=== PATIENT | female | born 1980 | race African-American/Black ===

== ENCOUNTER 2018-05-07 16:02 | Inpatient (IN) | payer BC, OTHER ==
--- NOTE | 2018-05-07 16:19 | PDOC ---
Rapid Medical Evaluation Time Seen by Provider: 05/07/18 16:15 Medical Evaluation: Allergies Allergy/AdvReac Type Severity Reaction Status Date / Time No Known Allergies Allergy Verified 05/07/18 08:46 05/07/18 16:15 I performed a brief in-person evaluation of this patient. Chief complaint is: Sent by PCP for blood transfusion. Had pre-op labs for ANGELLA with Dr. Koo scheduled for tomorrow. Pertinent physical exam findings include: Alert, no distress. No dyspnea. No pallor. I have ordered the following: Labs, EKG. Patient will proceed to the ED for further evaluation. Discharge Disposition - Diagnosis Anemia Qualifiers: Anemia type: unspecified type Qualified Code(s): D64.9 - Anemia, unspecified - Referrals - Patient Instructions - Post Discharge Activity
[2018-05-07 16:32] VITALS: BMI 26.4
--- NOTE | 2018-05-07 16:45 | PDOC ---
History of Present Illness - General Chief Complaint: Blood Transfusion Stated Complaint: PCP ADMIT/BLOOD TRANSFUSION Time Seen by Provider: 05/07/18 16:15 History Source: Patient - History of Present Illness Initial Comments: 05/07/18 16:49 The patient is a 38 year old female with a PMH of Anemia (2/2 fibroids) who presents to our ED for a low reported Hb level. Patient reports she is scheduled for ANGELLA tomorrow and she had pre-operative labs drawn in Dr. Don's office that showed a low Hb so she was instructed to report to the ED for a pre-operative transfusion. Patient notes she feels intermittently lightheaded upon exertion for the past 3 weeks but denies shortness of breath, palpitations. H/o anemia during her first at which time she required 3 weeks of every other day Fe transfusions in her third trimester. Did not receive any additional hematological work-up/evaluation at that time. ED staff reports that phone call received from Quiana in Dr. Don's office stating that pre-operative labs drawn yesterday reported with a Hb of 4 and patient was advised to come to the ED for transfusion and admission. NKDA Surgical: inguinal hernia repair Social: denies toxic habits PMD: None - will refer to IM resident clinic Past History - Past Medical History Allergies/Adverse Reactions: Allergies Allergy/AdvReac Type Severity Reaction Status Date / Time No Known Allergies Allergy Verified 05/07/18 08:46 Home Medications: Ambulatory Orders Ibuprofen [Motrin -] 400 mg PO PRN PRN 05/07/18 COPD: No - Surgical History Cholecystectomy: No - Immunization History Immunization Up to Date: Yes - Suicide/Smoking/Psychosocial Hx Smoking History: Never smoked Have you smoked in the past 12 months: No Information on smoking cessation initiated: No Hx Alcohol Use: No Drug/Substance Use Hx: No Review of Systems - Review of Systems Constitutional: No: Chills, Fever HEENTM: No: Recent change in vision Respiratory: No: Cough, Shortness of Breath Cardiac (ROS): Yes: Lightheadedness. No: Chest Pain, Palpitations, Syncope ABD/GI: No: Constipated, Diarrhea, Nausea, Vomiting *Physical Exam - Vital Signs Last Vital Signs Temp Pulse Resp BP Pulse Ox 99.3 F 83 18 115/74 100 05/07/18 16:16 05/07/18 16:16 05/07/18 16:16 05/07/18 16:16 05/07/18 16:16 - Physical Exam General Appearance: Yes: Nourished, Appropriately Dressed HEENT: positive: Normal Voice, Hearing Grossly Normal. negative: Pale Conjunctivae Neck: positive: Trachea midline, Supple Respiratory/Chest: positive: Lungs Clear, Normal Breath Sounds Cardiovascular: positive: S1, S2. negative: JVD, Murmur, Tachycardia Vascular Pulses: Dorsalis-Pedis (R): 2+, Doralis-Pedis (L): 2+ Gastrointestinal/Abdominal: positive: Normal Bowel Sounds, Soft. negative: Distended, Guarding, Rebound, Tenderness, Hernia Extremity: positive: Normal Capillary Refill, Normal Inspection Integumentary: positive: Normal Color, Dry, Warm Moderate Sedation - Procedure Monitoring Vital Signs: Procedure Monitoring Vital Signs Temperature 99.3 F 05/07/18 16:16 Pulse Rate 83 05/07/18 16:16 Respiratory Rate 18 05/07/18 16:16 Blood Pressure 115/74 05/07/18 16:16 O2 Sat by Pulse Oximetry (%) 100 05/07/18 16:16 ED Treatment Course - LABORATORY CBC & Chemistry Diagram: 05/07/18 16:24 05/07/18 16:24 Medical Decision Making - Medical Decision Making 05/07/18 16:55 38 year old female with confirmed Hb reading of 4 yesterday in her OB-Dough Braker (Dr. Don) office as a part of pre-op labs for scheduled ANGELLA tomorrow. Intermittently symptomatic with 3 week h/o lightheadedness. VS unremarkable. CBC, CMP, Type and Screen ordered in triage. Will also refer to IM resident clinic so patient can establish primary care. 05/07/18 17:03 Case d/w Dr. Don, states patient can be admitted under her name 05/07/18 17:05 Lab phone call recieved Hb 6.8 Two units PRBC ordered 05/07/18 17:38 Patient counseled on risks/benefits and consents to transfusion. Patient admitted to Dr. Don. 05/07/18 17:48 As patient is admitted, EMR does not allow for referral to be placed to IM resident clinic; patient given IM resident clinic pamphlet and counseled extensively on importance of establishing primary care. *DC/Admit/Observation/Transfer Diagnosis at time of Disposition: Anemia Qualifiers: Anemia type: unspecified type Qualified Code(s): D64.9 - Anemia, unspecified - Discharge Dispostion Condition at time of disposition: Stable - Referrals - Patient Instructions - Post Discharge Activity
[2018-05-07 16:51] LABS: BASO % 1.2 % (0-2.0); EOS % 2.3 % (0-4.5); HEMATOCRIT 23.7 % (32.4-45.2); LYMPH % 24.8 % (8-40); MCHC 28.5 g/dl (32.0-36.0); MEAN CELL VOLUME 57.2 fl (80-96); MEAN PLT VOLUME 8.7 fl (7.5-11.1); MONO % 8.7 % (3.8-10.2); PLATELET COUNT 186 K/MM3 (134-434); RBC 4.14 M/mm3 (3.60-5.2); RDW 20.5 % (11.6-15.6); WHITE BLOOD COUNT 6.7 K/mm3 (4.0-10.0)
[2018-05-07 17:00] LABS: HEMOGLOBIN 6.8 GM/dL (10.7-15.3); MCH 16.3 pg (25.7-33.7)
[2018-05-07 17:04] LABS: INR 1.13 (0.83-1.09); PROTHROMBIN TIME (PATIENT) 13.4 SEC (9.7-13.0)
[2018-05-07 18:00] LABS: ALBUMIN 3.8 g/dl (3.4-5.0); ALK PHOS 58 U/L (45-117); ANION GAP 8 MMOL/L (8-16); BILIRUBIN,TOTAL 0.3 mg/dL (0.2-1); BLOOD UREA NITROGEN 8 mg/dL (7-18); CALCIUM 8.4 mg/dL (8.5-10.1); CHLORIDE 109 mmol/L (98-107); CO2 24 mmol/L (21-32); CREATININE 0.5 mg/dL (0.55-1.3); GLUCOSE,RANDOM 96 mg/dL (74-106); SGOT/AST 9 U/L (15-37); SGPT/ALT 16 U/L (13-61); SODIUM 140 mmol/L (136-145); TOT PROT 7.1 g/dl (6.4-8.2)
--- NOTE | 2018-05-07 18:08 | PDOC ---
Attending Attestation - Resident Resident Name: Sayra Rosenbaum - ED Attending Attestation I have performed the following: I have examined & evaluated the patient, The case was reviewed & discussed with the resident, I agree w/resident's findings & plan, Exceptions are as noted - HPI HPI: 05/07/18 18:09 The patient is a 38 year old female, with a significant past medical history of Anemia, who presents to the emergency department sent from Dr. Koo office for evaluation of low hemoglobin (4) on pre-operative labs for ANGELLA scheduled tomorrow. The patient reports having anemia during her first at which time she required 3 weeks of every other day iron transfusions in her third trimester and did not receive any additional hematological evaluation at that time. The patient notes she feels intermittently lightheaded upon exertion but denies shortness of breath, palpitations. The patient denies chest pain, headache and dizziness. Denies fever, chills, nausea, vomit, diarrhea and constipation. Denies dysuria, frequency, urgency and hematuria. Allergies: NKA Surgical: inguinal hernia repair Social: denies toxic habits - Physicial Exam PE: 05/07/18 18:09 agree with resident exam - Medical Decision Making 05/07/18 18:09 38yo F hx fibroids, scheduled for ANGELLA tomorrow prsents to the ED for transfusion for anemia prior to surgery tomorrow. Pt accepted for admission to Dr. Koo.
[2018-05-08] MEDS ORDERED: LIDOCAINE HCL/PF 2% SDV 5ML VIAL ONE (09:49)
[2018-05-08] MEDS ORDERED: ceFAZolin SODIUM 1 GM VIAL ONE (09:49)
[2018-05-08] MEDS ORDERED: DEXAMETHASONE SOD PHOSPHATE 4 MG/1 ML VIAL ONE (09:49)
[2018-05-08] MEDS ORDERED: ROCURONIUM BROMIDE 50 MG/5 ML VIAL ONE (09:52)
[2018-05-08] MEDS ORDERED: PROPOFOL 20 ML ONE (09:52)
[2018-05-08 10:14] LABS: BASO % 0.8 % (0-2.0); EOS % 2.4 % (0-4.5); HEMATOCRIT 29.5 % (32.4-45.2); HEMOGLOBIN 9.2 GM/dL (10.7-15.3); LYMPH % 19.5 % (8-40); MCHC 31.2 g/dl (32.0-36.0); MEAN CELL VOLUME 61.1 fl (80-96); MEAN PLT VOLUME 8.7 fl (7.5-11.1); MONO % 7.8 % (3.8-10.2); NEUT % 69.5 % (42.8-82.8); PLATELET COUNT 190 K/MM3 (134-434); RBC 4.83 M/mm3 (3.60-5.2); RDW 24.6 % (11.6-15.6)
[2018-05-08] MEDS ORDERED: ROPIVACAINE HCL 0.5% 30ML VIAL ONE (10:25)
[2018-05-08] MEDS ORDERED: DEXAMETHASONE SOD PHOSPHATE/PF 10 MG/ML SDV ONE (10:25)
[2018-05-08] MEDS ORDERED: MIDAZOLAM HCL 2 MG/2 ML SINGLE DOSE VIAL ONE ×2 (10:26)
[2018-05-08 10:29] LABS: MCH 19.1 pg (25.7-33.7)
[2018-05-08] MEDS ORDERED: PHENAZOPYRIDINE HCL 100 MG TABLET (FP) ONE ×2 (10:49→10:51)
[2018-05-08] MEDS ORDERED: KETAMINE HCL 200 MG/20 ML VIAL ONE (10:50)
[2018-05-08] MEDS ORDERED: CEFAZOLIN 2 GM/D5W 2 GM/50 ML ML IVPB ONE ×2 (11:00→14:44)
[2018-05-08] MEDS ORDERED: PHENAZOPYRIDINE HCL 100 MG TABLET (FP) PO ONE ×2 (11:15→14:44)
[2018-05-08] MEDS ORDERED: ceFAZolin SODIUM 1 GM VIAL IVPB ONE (11:16)
[2018-05-08] MEDS ORDERED: ONDANSETRON 4 MG/2 ML VIAL IVPUSH PRN ×2 (11:39→14:44)
[2018-05-08] MEDS ORDERED: HYDROmorphone *PCA* 10MG/50ML DISP.SYRIN PCA SCH ×2 (11:45→14:44)
[2018-05-08] MEDS ORDERED: LACTATED RINGERS SOLUTION 1,000 ML IV SCH (11:45)
--- NOTE | 2018-05-08 12:22 | EKG ---
Test Reason : Blood Pressure : / mmHG Vent. Rate : 079 BPM Atrial Rate : 079 BPM P-R Int : 170 ms QRS Dur : 092 ms QT Int : 378 ms P-R-T Axes : 043 -17 036 degrees QTc Int : 433 ms NORMAL SINUS RHYTHM NORMAL ECG WHEN COMPARED WITH ECG OF 07-MAY-2018 16:27, NO SIGNIFICANT CHANGE WAS FOUND Confirmed by NIRMAL GRAY MD ([id number]) on 05/08/2018 12:22:03 PM Referred By: Confirmed By:NIRMAL GRAY MD
--- NOTE | 2018-05-08 12:23 | EKG ---
Test Reason : Blood Pressure : / mmHG Vent. Rate : 074 BPM Atrial Rate : 074 BPM P-R Int : 166 ms QRS Dur : 088 ms QT Int : 376 ms P-R-T Axes : 028 -07 033 degrees QTc Int : 417 ms NORMAL SINUS RHYTHM NORMAL ECG NO PREVIOUS ECGS AVAILABLE Confirmed by NIRMAL GRAY MD ([id number]) on 05/08/2018 12:23:24 PM Referred By: Confirmed By:NIRMAL GRAY MD
[2018-05-08] MEDS ORDERED: NEOSTIGMINE METHYLSULFATE 0.5 MG/ML - 10 ML MDV ONE (12:41)
[2018-05-08] MEDS ORDERED: GLYCOPYRROLATE 0.2 MG/1 ML VIAL ONE (12:41)
[2018-05-08] MEDS ORDERED: BENZOIN TINCTURE SWABSTICK TP ONE (12:47)
[2018-05-08] MEDS ORDERED: KETOROLAC TROMETHAMINE 30 MG/1 ML VIAL ONE (13:07)
--- NOTE | 2018-05-08 13:46 | OP ---
DATE OF OPERATION: 05/08/2018 PREOPERATIVE DIAGNOSIS: Leiomyomatous uterus, menorrhagia, anemia, and intramural myomas. SURGERY: Total abdominal hysterectomy and bilateral salpingectomy. SURGEON: Emma Koo MD VP: ELI Day ANESTHESIA: General. PROCEDURE: Patient was taken to the operating room, placed in supine position, prepped and draped in the usual sterile fashion. A time-out was called in accordance with hospital regulations. Hilton catheter was inserted into the bladder. Attention was then drawn to the umbilicus, where a Pfannenstiel skin incision was made with the scalpel. Cautery was then used to go through the layers of abdominal wall to the level of the fascia. Fascia was cut in the midline, and cautery was then used to open the fascia in smiling fashion. Evelin was then used to bluntly and sharply dissect the rectus muscle off the fascia. The muscle was split in the midline. Peritoneal cavity was then entered and carried up and downwards. Bladder retractor was then placed Vesicouterine reflection was then entered. Bladder was bluntly dissected out of the operative field. Utero-ovarian ligament was identified and clamped and cut with LigaSure bilaterally. Uterine arteries were identified and clamped and cut. Vesicouterine reflection was then entered again and carried downwards. Bladder was bluntly dissected out of the operative field. Cardinal ligaments were identified and clamped and cut using LigaSure down to the level of the cervix. Vagina was then entered, and cervix was then cut away from the vagina. Uterus was approximately 15 weeks in size and was submitted to Pathology. Attention was then drawn to the ovaries. The left ovary was noted to have a 5-cm ovarian cyst. Ovarian cystectomy was then performed and submitted to Pathology. All bleeding was hemostatic using figure-of-8 sutures as well as free ties and cautery. Ureters were identified and found to be in peristalsis. Interceed was placed on the cuff. Hemostasis was achieved. Right ovary was noted to be normal. The peritoneum was then closed using 0 Vicryl suture. Muscles were approximated in the midline using 0 Vicryl suture. Fascia was then closed using 0 Vicryl suture. Subcutaneous was then closed in 3 interrupted sutures using 2-0 Vicryl, and skin was then closed in subcuticular fashion using 3-0 Vicryl in subcuticular fashion. Wounds washed and dressed. Patient tolerated the procedure well. Estimated blood loss was 300 milk EMMA KOO M.D. [id number]
[2018-05-08] MEDS ORDERED: HYDROmorphone *PCA* 10MG/50ML DISP.SYRIN PCA ONE (13:59)
[2018-05-08] MEDS ORDERED: SIMETHICONE 80 MG TAB.CHEW (FP) PO PRN (14:08)
[2018-05-08] MEDS ORDERED: LACTATED RINGERS SOLUTION 1,000 ML/1,000 ML INFUS.BAG IV SCH ×2 (14:15→14:44)
--- NOTE | 2018-05-08 15:34 | OP ---
Operative Note - Note: Operative Date: 05/08/18 Pre-Operative Diagnosis: dysfunctional uterine bleeding, Leiomyoma of uterus Operation: Total abdominal hysterctomy, Right Salpingectomy, Left ovarian cystectomy Post-Operative Diagnosis: Same as Pre-op Surgeon: Radha Koo Care Navigator: Latasha Chaudhry Anesthesiologist/SURFACER OPERATOR: Chang Fish Anesthesia: General, Local (tap block) Specimens Removed: uterus,. right fallopian tube Estimated Blood Loss (mls): 300 Drains, Volume Out (mls): 400 Fluid Volume Replaced (mls): 1,700 Operative Report Dictated: Yes
--- NOTE | 2018-05-08 16:33 | SURG ---
Surgery Pilot Submersible Note Pilot Submersible: Latasha Chaudhry PA-C Date of Service: 05/08/18 Diagnosis: Leiomyoma of uterus, dysfunctional uterine bleeding Procedure: Total abdominal hysterctomy, Right Salpingectomy, Left ovarian cystectomy I was present for the entirety of the operative procedure. For further detail, please refer to operative report. Visit type - Case Type Case Type: ED Admission - Emergency Emergency Visit: Yes ED Registration Date: 05/07/18 Care time: The patient presented to the Emergency Department on the above date and was hospitalized for further evaluation of their emergent condition. - New patient This patient is new to me today: Yes Date on this admission: 05/08/18
[2018-05-08 19:48] LABS: HEMATOCRIT 28.3 % (32.4-45.2); HEMOGLOBIN 8.9 GM/dL (10.7-15.3); MCHC 31.5 g/dl (32.0-36.0); MEAN CELL VOLUME 61.3 fl (80-96); MEAN PLT VOLUME 9.4 fl (7.5-11.1); PLATELET COUNT 175 K/MM3 (134-434); RBC 4.62 M/mm3 (3.60-5.2); RDW 24.6 % (11.6-15.6)
[2018-05-08 19:50] LABS: MCH 19.3 pg (25.7-33.7)
[2018-05-08] MEDS: CEFAZOLIN 1 GM/D5W 1 GM/50 ML BAG IVPB SCH (19:53)
[2018-05-08] MEDS ORDERED: CEFAZOLIN 1 GM/D5W 1 GM/50 ML BAG IVPB SCH (20:00)
[2018-05-08 20:17] LABS: ALBUMIN 3.5 g/dl (3.4-5.0); ALK PHOS 56 U/L (45-117); ANION GAP 10 MMOL/L (8-16); BILIRUBIN,TOTAL 0.6 mg/dL (0.2-1); BLOOD UREA NITROGEN 9 mg/dL (7-18); CALCIUM 7.9 mg/dL (8.5-10.1); CHLORIDE 108 mmol/L (98-107); CO2 22 mmol/L (21-32); CREATININE 0.4 mg/dL (0.55-1.3); GLUCOSE,RANDOM 110 mg/dL (74-106); POTASSIUM 3.6 mmol/L (3.5-5.1); SGOT/AST 16 U/L (15-37); SGPT/ALT 16 U/L (13-61); SODIUM 140 mmol/L (136-145); TOT PROT 6.4 g/dl (6.4-8.2)
[2018-05-09] MEDS: CEFAZOLIN 1 GM/D5W 1 GM/50 ML BAG IVPB SCH ×3 (03:24→17:21)
[2018-05-09 06:09] LABS: HEMATOCRIT 25.3 % (32.4-45.2); MCHC 31.5 g/dl (32.0-36.0); MEAN CELL VOLUME 60.3 fl (80-96); PLATELET COUNT 169 K/MM3 (134-434); RDW 24.5 % (11.6-15.6); WHITE BLOOD COUNT 14.8 K/mm3 (4.0-10.0)
[2018-05-09 07:10] LABS: ALBUMIN 3.1 g/dl (3.4-5.0); ALK PHOS 51 U/L (45-117); ANION GAP 8 MMOL/L (8-16); BILIRUBIN,TOTAL 0.5 mg/dL (0.2-1); BLOOD UREA NITROGEN 9 mg/dL (7-18); CALCIUM 8.1 mg/dL (8.5-10.1); CHLORIDE 108 mmol/L (98-107); CO2 26 mmol/L (21-32); CREATININE 0.5 mg/dL (0.55-1.3); GLUCOSE,RANDOM 109 mg/dL (74-106); POTASSIUM 3.7 mmol/L (3.5-5.1); SGOT/AST 15 U/L (15-37); SGPT/ALT 15 U/L (13-61); SODIUM 141 mmol/L (136-145); TOT PROT 5.8 g/dl (6.4-8.2)
--- NOTE | 2018-05-09 07:16 | PN ---
Progress Note (SOAP) - Subjective Chief Complaint: Pt doing well pt tolerating clear ward removed - Current Medications Current Medications: Active Medications Enoxaparin Sodium (Lovenox -) 40 mg SQ DAILY [facility] Fentanyl (Sublimaze Injection -) 50 mcg IVPUSH Q5M PRN PRN Reason: PAIN-PACU ORDER X 4 DOSES ONLY Hydromorphone HCl (Dilaudid Software Development Analyst -) 10 mg FERMENTER FERMENTER [facility]; Protocol Stop: 05/15/18 11:40 Cefazolin Sodium (Ancef 1 Gm Premixed Ivpb -) 1 gm in 50 mls @ 100 mls/hr IVPB Q8HIV [facility] Stop: 05/09/18 19:59 Last Admin: 05/09/18 03:24 Dose: 100 mls/hr Lactated Ringer's (Lactated Ringers Solution) 1,000 ml in 1,000 mls @ 125 mls/ hr IV ASDIR [facility] Last Admin: 05/08/18 14:51 Dose: 0 mls Ondansetron HCl (Zofran Injection) 4 mg IVPUSH Q6H PRN PRN Reason: NAUSEA AND/OR VOMITING Simethicone (Mylicon -) 80 mg PO Q4H PRN PRN Reason: GAS - Objective Vital Signs: Vital Signs Temperature 99.1 F 05/09/18 06:00 Pulse Rate 80 05/09/18 06:00 Respiratory Rate 18 05/09/18 06:00 Blood Pressure 108/62 05/09/18 06:00 O2 Sat by Pulse Oximetry (%) 100 05/08/18 21:00 Constitutional: Yes: Well Nourished, No Distress Gastrointestinal: Yes: WNL, Soft Extremities: Yes: WNL Edema: No Wound/Incision: Yes: Steri Strips, Dressing Removed Labs Lab Results: CBC, BMP 05/09/18 05:56 05/09/18 05:56 Assessment/Plan POD1 stable plan DC Home in am if passing flatus
--- NOTE | 2018-05-09 08:30 | PN ---
Progress Note (short form) - Note Progress Note: Anesthesia POD#1 S/P ANGELLA/SO under GA,TAP block and Dilaudid THREAD CHECKER VSS,some nausea,moderate pain,using THREAD CHECKER Just on clears. A/P Patient can continue the THREAD CHECKER for today. Angelita Glez MD.
[2018-05-09] MEDS: ENOXAPARIN NA (PORCINE) 40 MG/0.4 ML DISP.SYRIN SQ SCH (09:32)
[2018-05-09] MEDS ORDERED: ENOXAPARIN NA (PORCINE) 40 MG/0.4 ML DISP.SYRIN SQ SCH (10:00)
[2018-05-09] MEDS: SIMETHICONE 80 MG TAB.CHEW (FP) PO PRN ×3 (11:00→20:54)
[2018-05-09] MEDS: oxyCODONE HCL 5 MG TABLET PO PRN ×3 (11:00→20:54)
[2018-05-09] MEDS: ACETAMINOPHEN 325 MG TABLET (FP) PO PRN ×2 (15:00→20:58)
[2018-05-10] MEDS: SIMETHICONE 80 MG TAB.CHEW (FP) PO PRN (01:12)
[2018-05-10] MEDS: oxyCODONE HCL 5 MG TABLET PO PRN ×2 (01:12→07:27)
[2018-05-10] MEDS: ACETAMINOPHEN 325 MG TABLET (FP) PO PRN ×2 (01:13→07:29)
[2018-05-10 06:23] VITALS: TEMP 98.9
[2018-05-10] MEDS: ENOXAPARIN NA (PORCINE) 40 MG/0.4 ML DISP.SYRIN SQ SCH (09:16)
--- NOTE | 2018-05-10 09:52 | PN ---
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
[2018-05-10 10:24] VITALS: BP 113/73; PULSE 79
[2018-05-10] MEDS ORDERED: ONDANSETRON 4 MG TABLET PO ONE (10:29)
[2018-05-10 10:42] LABS: BASO % 0.8 % (0-2.0); EOS % 2.5 % (0-4.5); HEMATOCRIT 24.2 % (32.4-45.2); HEMOGLOBIN 7.6 GM/dL (10.7-15.3); LYMPH % 19.3 % (8-40); MCHC 31.3 g/dl (32.0-36.0); MEAN CELL VOLUME 62.1 fl (80-96); MEAN PLT VOLUME 9.7 fl (7.5-11.1); MONO % 9.4 % (3.8-10.2); PLATELET COUNT 174 K/MM3 (134-434); RBC 3.89 M/mm3 (3.60-5.2); RDW 24.8 % (11.6-15.6); WHITE BLOOD COUNT 9.3 K/mm3 (4.0-10.0)
[2018-05-10 10:43] LABS: MCH 19.4 pg (25.7-33.7)
[2018-05-10 11:59] LABS: ANISOCYTOSIS 1+; MACROCYTOSIS 0; OVALOCYTE 1+; PLATELET ESTIMATE NORMAL
== END 2018-05-10 13:55 | disposition home or self-care (01) | DRG 743 ==
LOC: JER 16:02 → JERBED 17:07 → J7W 05-08 09:26 → J3W 05-08 16:47
PROVIDERS: ADMIT Obstetrics & Gynecology; ATTEND Obstetrics & Gynecology
PROC: 0UB10ZZ Excision of Left Ovary, Open Approach (ICD-10-PCS; 2018-05-08)
PROC: 0UB50ZZ Excision of Right Fallopian Tube, Open Approach (ICD-10-PCS; 2018-05-08)
PROC: 0UT90ZZ Resection of Uterus, Open Approach (ICD-10-PCS; principal; 2018-05-08 10:30)
DX: D25.9 Leiomyoma of uterus, unspecified (principal); N92.0 Excessive and frequent menstruation with regular cycle; D64.9 Anemia, unspecified; N93.8 Other specified abnormal uterine and vaginal bleeding; N83.202 Unspecified ovarian cyst, left side
CPT/HCPCS: 36415; 36430; 71045-TC-FY; 80053; 82550; 84484; 84703; 85025; 85027; 85610; 86850; 86900; 86901; 86922; 88302-TC; 88304-TC; 88307-TC; 93005; 93010; 94760; 99285-25; P9038; P9058

== ENCOUNTER 2018-07-18 17:05 | Inpatient (IN) | payer BC, OTHER ==
[2018-07-18] MEDS ORDERED: ACETAMINOPHEN 1000 MG/100 ML VIAL (NON FORMULARY) IVPB ONE (18:06)
[2018-07-18] MEDS ORDERED: SODIUM CHLORIDE 1,000 ML IV STA (18:06)
[2018-07-18] MEDS ORDERED: ONDANSETRON 4 MG/2 ML VIAL IVPB ONE (18:06)
--- NOTE | 2018-07-18 18:10 | PDOC ---
History of Present Illness - General History Source: Patient Exam Limitations: No Limitations <Jerica Montes - Last Filed: 07/18/18 18:07> - History of Present Illness Initial Comments: 07/18/18 18:35 The patient is a 38 year old female, with a significant PMH of ANGELLA (05/08/2018), who was sent by PCP to the emergency department today for evaluation of sharp right epigastric abdominal pain and distention for approximately 3 days. Patient notes nausea and vomiting. She reports taking Dramamine with relief to nausea and has some PO today without emesis. She notes a Tmax of 101. In addition, patient states she has had dysuria and burning since hysterectomy last month. The patient denies chest pain, shortness of breath, headache and dizziness. Denies frequency, urgency and hematuria. Allergies: NKA Social history: No reported PCP: Dr. Hines <Shana Grigsby - Last Filed: 07/18/18 18:35> - General Chief Complaint: Pain Stated Complaint: PCP SENT/ABD PAIN Time Seen by Provider: 07/18/18 17:46 Past History - Past Medical History Anemia: No Asthma: No Cancer: No Cardiac Disorders: No CVA: No COPD: No CHF: No Dementia: No Diabetes: No GI Disorders: No Disorders: No HTN: No Hypercholesterolemia: No Liver Disease: No Seizures: No Thyroid Disease: No - Surgical History Abdominal Surgery: Yes Cholecystectomy: No - Immunization History Immunization Up to Date: Yes - Suicide/Smoking/Psychosocial Hx Smoking History: Never smoked Have you smoked in the past 12 months: No Hx Alcohol Use: No Drug/Substance Use Hx: No Substance Use Type: None, Alcohol, Cocaine, Heroin, Marijuana, Opiates, Prescribed, Tranquilizers Hx Substance Use Treatment: No <Jerica Montes - Last Filed: 07/18/18 18:07> <Shana Grigsby - Last Filed: 07/18/18 18:35> - Past Medical History Allergies/Adverse Reactions: Allergies Allergy/AdvReac Type Severity Reaction Status Date / Time No Known Allergies Allergy Verified 07/18/18 17:22 Home Medications: Ambulatory Orders NK [No Known Home Medication] 07/18/18 *Physical Exam - Vital Signs Last Vital Signs Temp Pulse Resp BP Pulse Ox 98.9 F 81 16 137/59 L 100 07/18/18 17:22 07/18/18 17:22 07/18/18 17:22 07/18/18 17:22 07/18/18 17:22 <Jerica Montes - Last Filed: 07/18/18 18:07> - Vital Signs Last Vital Signs Temp Pulse Resp BP Pulse Ox 98.9 F 81 16 137/59 L 100 07/18/18 17:22 07/18/18 17:22 07/18/18 17:22 07/18/18 17:22 07/18/18 17:22 <Shana Grigsby - Last Filed: 07/18/18 18:35> ED Treatment Course - LABORATORY CBC & Chemistry Diagram: 07/18/18 18:05 07/18/18 18:05 - ADDITIONAL ORDERS Additional order review: 07/18/18 18:05 RBC 4.86 MCV 67.3 L MCHC 30.7 L RDW 21.7 H MPV 9.4 Neutrophils % 71.4 Lymphocytes % 16.6 Monocytes % 7.6 Eosinophils % 3.6 Basophils % 0.8 <Shana Grigsby - Last Filed: 07/18/18 18:35> Medical Decision Making - Medical Decision Making 07/18/18 18:07 38 yo F currently 6 weeks here with c/o pelvic cramping and vaginal discharge. no f/c on urinar complaints. had OB appt already, states initially unable to visualize . denies vaginal bleedig. no f/c mild nausea, no vomiting. one exam pt awake alert lung clear bilaterally heart rrr no mrg abd soft mild suprapubic ttp. no rebound no guardin.g differential uti, cramps of , ectopic, other infection. plan pelvic exam. tvus labs ua. <Jerica Montes - Last Filed: 07/18/18 18:07> *DC/Admit/Observation/Transfer <Jerica Montes - Last Filed: 07/18/18 18:07> - Attestations Scribe Attestion: 07/18/18 18:35 Documentation prepared by Shana Grigsby, acting as medical physics researcher for Jerica Montes MD. <Shana Grigsby - Last Filed: 07/18/18 18:35> - Referrals Referrals: Donny,Tavon, MD [Primary Care Provider] - - Patient Instructions - Post Discharge Activity
--- NOTE | 2018-07-18 18:20 | PDOC ---
History of Present Illness - General Chief Complaint: Pain Stated Complaint: PCP SENT/ABD PAIN Time Seen by Provider: 07/18/18 17:46 History Source: Patient Exam Limitations: No Limitations - History of Present Illness Initial Comments: 07/18/18 18:15 Pt is a 38yo F with PMH of ANGELLA (05/08/2018) sent to ED from PMD office for abdominal pain and distension x 3 days. Pt states she has been having diffuse, sharp abdominal pain associated with nausea and vomiting. She said she took Dramamine which helped with the nausea and she was able to eat today without throwing up. Pain is sharp and is diffuse, pt says the pain is mainly in the epigastric area and on the R side of the abdomen. Also endorses fever of up to 101. Last BM was today. She states that she has also been having dysuria and burning since the procedure that has not gone away, she was given abx by her Ob/ Business Development Coordinator. She denies bloody/tarry stools, hematuria, back pain, chest pain, sob, leg swelling. PMD: Donny PMH: none PSH: see hpi Meds: none Allergies: nkda Social: denies Past History - Past Medical History Allergies/Adverse Reactions: Allergies Allergy/AdvReac Type Severity Reaction Status Date / Time No Known Allergies Allergy Verified 07/18/18 17:22 Home Medications: Ambulatory Orders NK [No Known Home Medication] 07/18/18 Anemia: No Asthma: No Cancer: No Cardiac Disorders: No CVA: No COPD: No CHF: No Dementia: No Diabetes: No GI Disorders: No Disorders: No HTN: No Hypercholesterolemia: No Liver Disease: No Seizures: No Thyroid Disease: No - Surgical History Abdominal Surgery: Yes Cholecystectomy: No - Immunization History Immunization Up to Date: Yes - Suicide/Smoking/Psychosocial Hx Smoking History: Never smoked Have you smoked in the past 12 months: No Hx Alcohol Use: No Drug/Substance Use Hx: No Substance Use Type: None, Alcohol, Cocaine, Heroin, Marijuana, Opiates, Prescribed, Tranquilizers Hx Substance Use Treatment: No Review of Systems - Review of Systems Constitutional: Yes: Fever, Loss of Appetite. No: Chills HEENTM: No: Symptoms Reported Respiratory: No: Cough, Shortness of Breath, Wheezing Cardiac (ROS): No: Chest Pain, Syncope, Chest Tightness ABD/GI: Yes: See HPI, Nausea, Vomiting, Abdominal cramping. No: Blood Streaked Bowels, Constipated, Diarrhea, Tarry Stools : Yes: Burning, Dysuria. No: Flank Pain Musculoskeletal: No: Symptoms Reported Integumentary: No: Symptoms Reported Neurological: No: Symptoms reported *Physical Exam - Vital Signs Last Vital Signs Temp Pulse Resp BP Pulse Ox 98.9 F 81 16 137/59 L 100 07/18/18 17:22 07/18/18 17:22 07/18/18 17:22 07/18/18 17:22 07/18/18 17:22 - Physical Exam General Appearance: Yes: Nourished, Appropriately Dressed. No: Apparent Distress HEENT: positive: EOMI, DB, Normal ENT Inspection Neck: positive: Trachea midline, Supple. negative: Lymphadenopathy (R), Lymphadenopathy (L) Respiratory/Chest: positive: Lungs Clear, Normal Breath Sounds. negative: Crackles, Rhonchi, Wheezing Cardiovascular: positive: Regular Rhythm, Regular Rate, S1, S2 Gastrointestinal/Abdominal: positive: Normal Bowel Sounds, Tender, Soft, Distended, Rebound, Tenderness, Other (no fluid wave). negative: Hernia, Mass Musculoskeletal: negative: CVA Tenderness Extremity: positive: Normal Capillary Refill. negative: Pedal Edema, Swelling Integumentary: positive: Normal Color, Dry, Warm Neurologic: positive: consumer sales representative II-XII NML intact, Fully Oriented, Alert, Normal Mood/ Affect, Normal Response, Motor Strength 5/5 Procedures - Bedside Ultrasound Bedside Ultrasound: Gallbladder Remarks: 07/19/18 01:26 GBW edema with pericholecystic fluid. Sonographic murphys. Gall stone normal CBD ED Treatment Course - LABORATORY CBC & Chemistry Diagram: 07/18/18 18:05 07/18/18 18:05 Medical Decision Making - Medical Decision Making 07/18/18 18:18 Pt is a 38yo F with PMH of ANGELLA (05/08/2018) sent to ED from PMD office for abdominal pain and distension x 3 days. Pt states she has been having diffuse, sharp abdominal pain associated with nausea and vomiting. She said she took Dramamine which helped with the nausea and she was able to eat today without throwing up. Pain is sharp and is diffuse, pt says the pain is mainly in the epigastric area and on the R side of the abdomen. Also endorses fever of up to 101. Last BM was today. She states that she has also been having dysuria and burning since the procedure that has not gone away, she was given abx by her Ob/ Business Development Coordinator. She denies bloody/tarry stools, hematuria, back pain, chest pain, sob, leg swelling. Vitals: wnl PE: diffuse abdominal tenderness +rebound. surgical incision well healed ddx includes but not limited to SBO, Perforation, cholecystitis, appendicitis, pyelonephritis, SBP, AAA -labs -iv fluids, iv tylenol -CT 07/19/18 01:25 labs wnl. no white count, normal LFTs CT: acute cholecystitis with cholelithiasis. free fluid. POCUS: gallstones with pericholecystic ff, sonographic murphys, GBW edema, normal CBD. formal us ordered. -Zosyn, morphine, fluids. Called Dr. Madrid about pt. Pt admitted med/surg *DC/Admit/Observation/Transfer Diagnosis at time of Disposition: Acute cholecystitis - Discharge Dispostion Condition at time of disposition: Good - Referrals - Patient Instructions - Post Discharge Activity
[2018-07-18] MEDS ORDERED: morphine CARPU-JECT 4 MG/1 ML DISP.SYRIN IVPUSH ONE ×2 (18:24→20:55)
[2018-07-18] MEDS ORDERED: ACETAMINOPHEN INJECTION 100 ML IVPB ONE (18:28)
[2018-07-18] MEDS ORDERED: MORPHINE SULFATE 2 MG/ML VIAL ONE (18:28)
[2018-07-18] MEDS ORDERED: ONDANSETRON 4 MG/2 ML VIAL ONE (18:29)
[2018-07-18 18:33] LABS: BASO % 0.8 % (0-2.0); EOS % 3.6 % (0-4.5); HEMATOCRIT 32.7 % (32.4-45.2); HEMOGLOBIN 10.1 GM/dL (10.7-15.3); LYMPH % 16.6 % (8-40); MCH 20.7 pg (25.7-33.7); MCHC 30.7 g/dl (32.0-36.0); MEAN CELL VOLUME 67.3 fl (80-96); MEAN PLT VOLUME 9.4 fl (7.5-11.1); MONO % 7.6 % (3.8-10.2); NEUT % 71.4 % (42.8-82.8); PLATELET COUNT 202 K/MM3 (134-434); RBC 4.86 M/mm3 (3.60-5.2); RDW 21.7 % (11.6-15.6)
[2018-07-18 18:52] LABS: ALBUMIN 3.6 g/dl (3.4-5.0); ALK PHOS 71 U/L (45-117); ANION GAP 4 MMOL/L (8-16); BILIRUBIN,TOTAL 0.2 mg/dL (0.2-1); BLOOD UREA NITROGEN 7 mg/dL (7-18); CHLORIDE 106 mmol/L (98-107); CO2 28 mmol/L (21-32); CREATININE 0.5 mg/dL (0.55-1.3); GLUCOSE,RANDOM 90 mg/dL (74-106); SGOT/AST 15 U/L (15-37); SGPT/ALT 17 U/L (13-61); SODIUM 138 mmol/L (136-145)
[2018-07-18 18:54] LABS: LIPASE 119 U/L (73-393)
--- NOTE | 2018-07-18 18:55 | PDOC ---
Attending Attestation - HPI HPI: 07/18/18 19:08 The patient is a 38 year old female, with a significant PMH of ANGELLA (05/08/2018), who was sent by PCP to the emergency department today for evaluation of sharp right epigastric abdominal pain and distention for approximately 3 days. Patient notes nausea and vomiting. She reports taking Dramamine with relief to nausea and has some PO today without emesis. She notes a Tmax of 101. In addition, patient states she has had dysuria and burning since hysterectomy last month. The patient denies chest pain, shortness of breath, headache and dizziness. Denies fever, chills, diarrhea and constipation. Denies dysuria, frequency, urgency and hematuria. Allergies: NKA Past surgical history: Hysterectomy Social history: No reported PCP: Dr. Hines <Shana Grigsby - Last Filed: 07/18/18 19:08> - Resident Resident Name: Tali Choudhary - ED Attending Attestation I have performed the following: I have examined & evaluated the patient, The case was reviewed & discussed with the resident, I agree w/resident's findings & plan, Exceptions are as noted - Physicial Exam PE: 07/18/18 21:29 awake alert lungs clear bilaterally heart rrr no mrg abd soft ruq ttp. epigastric ttp. positive graham's sign. bilat lower quad tenderness worse on right. positive rebound and guarding. no cva tenderness. ext wwp no edema. no calf tenderness. skin warm and dry. nuero alert and oriented x 3. - Medical Decision Making 07/18/18 18:53 38 yo f s/p hysterectomy for dysfunctional bleeding, with c/o fever, 101, abd pain, n/v and dysuria. differential uti, pyleo, sbo, cholecystitis, pancreatitis. sepsis, plan ct a/p labs ivf, pain an fever control. 07/18/18 21:30 ct with concerns for cholecystitis, pericholecystic fluid, and wall thicking stones. focused ED ultrsaoud RUQ performed, indication epigastri ruq pain gallbladder scanned in two planes. positive for wall thickening, wall edema. wall measured 4.7 mm. positive pericholecystic fluid, pos sonographic graham's cbd normal 2.8 mm positive gallstones in fundus. bilat focused renal us performed, indication dysuria bilat kidneys scanned in two planes. no hydronephrosis noted. bladder scanned in two planes nondistended. noted scant right lower quadrant free fluid. bilat ovaries identified. impression: gallstones with cholecystitis. and free fluid in right lower quadrant. dw surgery dr bartlett. abs. zosyn ordered. given 2 L NS, NPO. <Jerica Montes - Last Filed: 07/18/18 21:34> Attestations - Attestations 07/18/18 19:08 Documentation prepared by Shana Grigsby, acting as medical technologist blood bank for Jerica Montes MD. <Shana Grigsby - Last Filed: 07/18/18 19:08>
[2018-07-18 20:12] LABS: ANISOCYTOSIS 1+; PLATELET ESTIMATE ADEQUATE
[2018-07-18] MEDS ORDERED: PIPERACILLIN/TAZOB 3.375 GM 3.375 GM in DEXTROSE 5%-WATER - 50 ML IVPB ONE (20:57)
[2018-07-18 21:04] LABS: URINE APPEARANCE CLEAR; URINE BILIRUBIN NEGATIVE (NEGATIVE); URINE COLOR YELLOW; URINE GLUCOSE (UA) NEGATIVE (NEGATIVE); URINE KETONE NEGATIVE (NEGATIVE); URINE LEUK ESTERASE NEGATIVE (NEGATIVE); URINE NITRITE NEGATIVE (NEGATIVE); URINE PROTEIN NEGATIVE (NEGATIVE); URINE UROBILINOGEN 0.2 mg/dL (0.2-1.0)
[2018-07-18] MEDS ORDERED: PIPERACILLIN/TAZOB 3.375 GM 3.375 GM/50 ML BAG IVPB ONE (21:12)
[2018-07-18] MEDS ORDERED: morphine SULFATE 4 MG/ML VIAL ONE (21:12)
[2018-07-18] MEDS ORDERED: LACTATED RINGERS SOLUTION 1000 ML INFUS.BAG IV ONE (21:34)
[2018-07-18 21:39] LABS: INR 1.05 (0.83-1.09); PROTHROMBIN TIME (PATIENT) 12.4 SEC (9.7-13.0)
[2018-07-18 21:42] LABS: ACTIVATED PTT 29.7 SECONDS (25.2-36.5)
--- NOTE | 2018-07-18 22:26 | HP ---
CHIEF COMPLAINT: abd pain PCP: Dr. Hines HISTORY OF PRESENT ILLNESS: Patient is a 38 y/o F w/ PMHx fibroid uterus s/p ANGELLA Apr 2018, p/w colicky pain since ANGELLA progressing to severe unremitting abd pain over past 3 days, most prominently R-sided and epigastric, a/w nausea and multiple episodes NBNB vomiting. Additionally reports fever at home to 101. ROS otherwise negative. On presentation lab studies are unremarkable, in particular LFTs and lipase wnl, vitals are stable, Pt afebrile. Received 2L NS, morphine, empiric Zosyn in ED. CT a/p and abd US are both c/w acute calculous cholecystitis. ER course was notable for: (1) CT a/p c/w acute calculous cholecystitis (2) Abd US c/w acute calculous cholecystitis (3) Recent Travel: PAST MEDICAL HISTORY: As per HPI PAST SURGICAL HISTORY: As per HPI, additionally hernia surgery as a teenager Social History: Smoking: no Alcohol: no Drugs: no Family History: Allergies No Known Allergies Allergy (Verified 07/18/18 17:22) HOME MEDICATIONS: Home Medications Medication Instructions Recorded NK [No Known Home Medication] 07/18/18 REVIEW OF SYSTEMS PHYSICAL EXAMINATION Vital Signs - 24 hr 07/18/18 17:22 Temperature 98.9 F Pulse Rate 81 Respiratory 16 Rate Blood Pressure 137/59 L O2 Sat by Pulse 100 Oximetry (%) GENERAL: A&Ox3, NAD HEENT: NC/AT, PERRLA, EOMI, MMM NECK: Trachea midline, full range of motion, supple. LUNGS: CTA b/l HEART: RRR no m/r/g ABDOMEN: +bs, soft, severe diffuse tenderness most prominently RUQ and epigastrum EXTREMITIES: 2+ pulses, warm, well-perfused, no edema. 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 SKIN: Warm, dry, normal turgor, no rashes or lesions noted Laboratory Results - last 24 hr 07/18/18 07/18/18 07/18/18 18:05 18:05 18:05 WBC 10.0 RBC 4.86 Hgb 10.1 L Hct 32.7 D MCV 67.3 L MCH 20.7 L MCHC 30.7 L RDW 21.7 H Plt Count 202 MPV 9.4 Absolute Neuts (auto) 7.2 Neutrophils % 71.4 Lymphocytes % 16.6 Monocytes % 7.6 Eosinophils % 3.6 Basophils % 0.8 Nucleated RBC % 0 Hypochromia 2+ Platelet Estimate Adequate Platelet Comment No clumping noted Anisocytosis 1+ Microcytosis 1+ PT with INR INR PTT (Actin FS) Sodium 138 Potassium 4.0 Chloride 106 Carbon Dioxide 28 Anion Gap 4 L BUN 7 Creatinine 0.5 L Creat Clearance w eGFR 136.65 Random Glucose 90 Lactic Acid Calcium 9.0 Total Bilirubin 0.2 AST 15 ALT 17 Alkaline Phosphatase 71 Troponin I Total Protein 7.0 Albumin 3.6 Lipase Urine Color Urine Appearance Urine pH Ur Specific [place] Urine Protein Urine Glucose (UA) Urine Ketones Urine Blood Urine Nitrite Urine Bilirubin Urine Urobilinogen Ur Leukocyte Esterase Urine HCG, Qual Negative 07/18/18 07/18/18 07/18/18 18:05 18:05 20:15 WBC RBC Hgb Hct MCV MCH MCHC RDW Plt Count MPV Absolute Neuts (auto) Neutrophils % Lymphocytes % Monocytes % Eosinophils % Basophils % Nucleated RBC % Hypochromia Platelet Estimate Platelet Comment Anisocytosis Microcytosis PT with INR INR PTT (Actin FS) Sodium Potassium Chloride Carbon Dioxide Anion Gap BUN Creatinine Creat Clearance w eGFR Random Glucose Lactic Acid 0.8 Calcium Total Bilirubin AST ALT Alkaline Phosphatase Troponin I < 0.02 Total Protein Albumin Lipase 119 Urine Color Yellow Urine Appearance Clear Urine pH 6.0 Ur Specific [place] 1.031 Urine Protein Negative Urine Glucose (UA) Negative Urine Ketones Negative Urine Blood Negative Urine Nitrite Negative Urine Bilirubin Negative Urine Urobilinogen 0.2 Ur Leukocyte Esterase Negative Urine HCG, Qual 07/18/18 21:06 WBC RBC Hgb Hct MCV MCH MCHC RDW Plt Count MPV Absolute Neuts (auto) Neutrophils % Lymphocytes % Monocytes % Eosinophils % Basophils % Nucleated RBC % Hypochromia Platelet Estimate Platelet Comment Anisocytosis Microcytosis PT with INR 12.40 INR 1.05 PTT (Actin FS) 29.7 Sodium Potassium Chloride Carbon Dioxide Anion Gap BUN Creatinine Creat Clearance w eGFR Random Glucose Lactic Acid Calcium Total Bilirubin AST ALT Alkaline Phosphatase Troponin I Total Protein Albumin Lipase Urine Color Urine Appearance Urine pH Ur Specific [place] Urine Protein Urine Glucose (UA) Urine Ketones Urine Blood Urine Nitrite Urine Bilirubin Urine Urobilinogen Ur Leukocyte Esterase Urine HCG, Qual ASSESSMENT/PLAN: 38 y/o F w/ PMHx fibroid uterus s/p ANGELLA p/w acute cholecystitis #acute cholecystitis -pre-op labs done -Sx consulted, Dr. Madrid aware -peter-op Cefazolin/Flagyl initiated -LR @ 125 -NPO -morphine/acetaminophen PRN per pain scale -Zofran PRN -admit to med/surg Visit type - Emergency Visit Emergency Visit: Yes ED Registration Date: 07/18/18 Care time: The patient presented to the Emergency Department on the above date and was hospitalized for further evaluation of their emergent condition. - New Patient This patient is new to me today: Yes Date on this admission: 07/18/18 - Critical Care Critical Care patient: No
--- NOTE | 2018-07-18 22:47 | PN ---
Teaching Attending Note Name of Resident: To Sewell ATTENDING PHYSICIAN STATEMENT I saw and evaluated the patient. I reviewed the resident's note and discussed the case with the resident. I agree with the resident's findings and plan as documented. SUBJECTIVE: This is a 38 year old woman with a history of anemia, abnormal uterine bleeding secondary to fibroids, hysterectomy who comes to the ED complaining of abdominal pain, nausea, vomiting, and fever for 3 days. The pain has been in the epigastrium and RUQ of her abdomen. She has had fever to 101. She vomits undigested food and bile every time she eats. OBJECTIVE: Vital Signs Period Temp Pulse Resp BP Sys/Chavez Pulse Ox Last 24 Hr 98.9 F 81 16 137/59 100 HEART: S1S2, RRR LUNGS: Clear ABDOMEN: Soft, non-distended, (+) RUQ/epigastric tenderness, normal BS EXTREMITIES: No edema Laboratory Tests 07/18/18 07/18/18 07/18/18 18:05 18:05 18:05 WBC 10.0 RBC 4.86 Hgb 10.1 L Hct 32.7 D MCV 67.3 L MCH 20.7 L MCHC 30.7 L RDW 21.7 H Plt Count 202 MPV 9.4 Absolute Neuts (auto) 7.2 Neutrophils % 71.4 Lymphocytes % 16.6 Monocytes % 7.6 Eosinophils % 3.6 Basophils % 0.8 Nucleated RBC % 0 Hypochromia 2+ Platelet Estimate Adequate Platelet Comment No clumping noted Anisocytosis 1+ Microcytosis 1+ PT with INR INR PTT (Actin FS) Sodium 138 Potassium 4.0 Chloride 106 Carbon Dioxide 28 Anion Gap 4 L BUN 7 Creatinine 0.5 L Creat Clearance w eGFR 136.65 Random Glucose 90 Lactic Acid Calcium 9.0 Total Bilirubin 0.2 AST 15 ALT 17 Alkaline Phosphatase 71 Troponin I Total Protein 7.0 Albumin 3.6 Lipase Urine Color Urine Appearance Urine pH Ur Specific [place] Urine Protein Urine Glucose (UA) Urine Ketones Urine Blood Urine Nitrite Urine Bilirubin Urine Urobilinogen Ur Leukocyte Esterase Urine HCG, Qual Negative Blood Type Antibody Screen 07/18/18 07/18/18 07/18/18 18:05 18:05 20:15 WBC RBC Hgb Hct MCV MCH MCHC RDW Plt Count MPV Absolute Neuts (auto) Neutrophils % Lymphocytes % Monocytes % Eosinophils % Basophils % Nucleated RBC % Hypochromia Platelet Estimate Platelet Comment Anisocytosis Microcytosis PT with INR INR PTT (Actin FS) Sodium Potassium Chloride Carbon Dioxide Anion Gap BUN Creatinine Creat Clearance w eGFR Random Glucose Lactic Acid 0.8 Calcium Total Bilirubin AST ALT Alkaline Phosphatase Troponin I < 0.02 Total Protein Albumin Lipase 119 Urine Color Yellow Urine Appearance Clear Urine pH 6.0 Ur Specific [place] 1.031 Urine Protein Negative Urine Glucose (UA) Negative Urine Ketones Negative Urine Blood Negative Urine Nitrite Negative Urine Bilirubin Negative Urine Urobilinogen 0.2 Ur Leukocyte Esterase Negative Urine HCG, Qual Blood Type Antibody Screen 07/18/18 07/18/18 21:06 21:06 WBC RBC Hgb Hct MCV MCH MCHC RDW Plt Count MPV Absolute Neuts (auto) Neutrophils % Lymphocytes % Monocytes % Eosinophils % Basophils % Nucleated RBC % Hypochromia Platelet Estimate Platelet Comment Anisocytosis Microcytosis PT with INR 12.40 INR 1.05 PTT (Actin FS) 29.7 Sodium Potassium Chloride Carbon Dioxide Anion Gap BUN Creatinine Creat Clearance w eGFR Random Glucose Lactic Acid Calcium Total Bilirubin AST ALT Alkaline Phosphatase Troponin I Total Protein Albumin Lipase Urine Color Urine Appearance Urine pH Ur Specific [place] Urine Protein Urine Glucose (UA) Urine Ketones Urine Blood Urine Nitrite Urine Bilirubin Urine Urobilinogen Ur Leukocyte Esterase Urine HCG, Qual Blood Type O POSITIVE Antibody Screen Negative Home Medications Medication Instructions Recorded NK [No Known Home Medication] 07/18/18 ASSESSMENT AND PLAN: This is a 38 year old woman with a history of anemia, abnormal uterine bleeding secondary to fibroids, hysterectomy who presented to the ED with abdominal pain , nausea, vomiting, and fever. 1. Acute cholecystitis - Given Zosyn in ED - Start cefazolin, Flagyl - NPO - IVF - Zofran as needed for nausea - Morphine as needed for pain - Surgery consult for cholecystectomy 3. Anemia, microcytic - Likely secondary to iron deficiency from abnormal uterine bleeding - Hgb 10.1 (7.6 on 05/10/18) - s/p ANGELLA, right salpingectomy, left ovarian cystectomy on 05/08/18
[2018-07-18] MEDS: LACTATED RINGERS SOLUTION 1,000 ML IV SCH (23:24)
[2018-07-19] MEDS ORDERED: CEFAZOLIN 1 GM/D5W 1 GM/50 ML BAG ONE (01:13)
[2018-07-19] MEDS: CEFAZOLIN 1 GM/D5W 1 GM/50 ML BAG IVPB SCH ×3 (01:15→17:44)
[2018-07-19] MEDS: LACTATED RINGERS SOLUTION 1,000 ML IV SCH ×2 (03:00→13:05)
[2018-07-19] MEDS: MORPHINE SULFATE 2 MG/ML VIAL IVPUSH PRN ×3 (03:01→19:20)
[2018-07-19] MEDS: ONDANSETRON 4 MG/2 ML VIAL IVPUSH PRN ×2 (03:15→08:50)
[2018-07-19 03:37] VITALS: BMI 27.5
[2018-07-19 07:48] LABS: BASO % 0.5 % (0-2.0); EOS % 3.1 % (0-4.5); HEMATOCRIT 29.8 % (32.4-45.2); HEMOGLOBIN 9.2 GM/dL (10.7-15.3); LYMPH % 15.2 % (8-40); MCH 20.6 pg (25.7-33.7); MCHC 30.9 g/dl (32.0-36.0); MEAN CELL VOLUME 66.6 fl (80-96); MEAN PLT VOLUME 9.6 fl (7.5-11.1); MONO % 6.9 % (3.8-10.2); NEUT % 74.3 % (42.8-82.8); PLATELET COUNT 185 K/MM3 (134-434); RBC 4.48 M/mm3 (3.60-5.2); RDW 21.3 % (11.6-15.6); WHITE BLOOD COUNT 9.4 K/mm3 (4.0-10.0)
[2018-07-19 08:01] LABS: ALK PHOS 65 U/L (45-117); ANION GAP 6 MMOL/L (8-16); BILIRUBIN,TOTAL 0.3 mg/dL (0.2-1); BLOOD UREA NITROGEN 3 mg/dL (7-18); CALCIUM 8.4 mg/dL (8.5-10.1); CHLORIDE 105 mmol/L (98-107); CO2 28 mmol/L (21-32); CREATININE 0.5 mg/dL (0.55-1.3); GLUCOSE,RANDOM 92 mg/dL (74-106); PHOSPHOROUS 3.8 mg/dL (2.5-4.9); POTASSIUM 3.6 mmol/L (3.5-5.1); SGOT/AST 9 U/L (15-37); SGPT/ALT 18 U/L (13-61); SODIUM 139 mmol/L (136-145)
[2018-07-19] MEDS ORDERED: PT OWN MED DRAWER 7, Y5N ONE (08:03)
[2018-07-19] MEDS: ACETAMINOPHEN 1000 MG/100 ML VIAL (NON FORMULARY) IVPB PRN (09:03)
--- NOTE | 2018-07-19 09:24 | PN ---
Progress Note (short form) - Note Progress Note: c/o pain and nausea. improved with medication. denies CP, SOB, fever, chills, V/ C/D Current Medications Generic Name Dose Route Start Last Admin Trade Name Bull PRN Reason Stop Dose Admin Acetaminophen 1,000 mg 07/18/18 21:39 07/19/18 09:03 Ofirmev Injection - IVPB 1,000 mg Q6H PRN Administration PAIN LEVEL 1-5 Lactated Ringer's 1,000 mls @ 125 mls/hr 07/18/18 21:45 07/19/18 03:00 Lactated Ringers Solution IV 125 mls/hr ASDIR MARYLIN Administration Cefazolin Sodium 1 gm in 50 mls @ 100 mls/hr 07/18/18 22:30 07/19/18 09:09 Ancef 1 Gm Premixed Ivpb - IVPB 100 mls/hr Q8H-IV MARYLIN Administration Metronidazole 500 mg in 100 mls @ 100 mls/hr 07/18/18 22:30 07/19/18 09:13 Flagyl 500mg Premixed Ivpb - IVPB 100 mls/hr Q8H-IV MARYLIN Administration Morphine Sulfate 2 mg 07/18/18 21:33 07/19/18 03:01 Morphine Sulfate IVPUSH 2 mg Q4H PRN Administration PAIN LEVEL 6-10 Ondansetron HCl 4 mg 07/18/18 21:36 07/19/18 08:50 Zofran Injection IVPUSH 4 mg Q6H PRN Administration NAUSEA AND/OR VOMITING Last Vital Signs Temp Pulse Resp BP Pulse Ox 98.3 F 77 20 106/70 97 07/19/18 09:15 07/19/18 09:15 07/19/18 09:15 07/19/18 09:15 07/18/18 21:23 General NAD CV S1 S2 RRR no murmur/rub/gallop Lungs CTA B/L no wheezing/rales/rhonchi Abdomen soft +RUQ and epigastric tenderness no rebound or guarding Extremities no pedal edema CBCD WBC 9.4 K/mm3 (4.0-10.0) 07/19/18 05:00 RBC 4.48 M/mm3 (3.60-5.2) 07/19/18 05:00 Hgb 9.2 GM/dL (10.7-15.3) L 07/19/18 05:00 Hct 29.8 % (32.4-45.2) L 07/19/18 05:00 MCV 66.6 fl (80-96) L 07/19/18 05:00 MCHC 30.9 g/dl (32.0-36.0) L 07/19/18 05:00 RDW 21.3 % (11.6-15.6) H 07/19/18 05:00 Plt Count 185 K/MM3 (134-434) 07/19/18 05:00 MPV 9.6 fl (7.5-11.1) 07/19/18 05:00 CMP Sodium 139 mmol/L (136-145) 07/19/18 05:00 Potassium 3.6 mmol/L (3.5-5.1) 07/19/18 05:00 Chloride 105 mmol/L (98-107) 07/19/18 05:00 Carbon Dioxide 28 mmol/L (21-32) 07/19/18 05:00 Anion Gap 6 MMOL/L (8-16) L 07/19/18 05:00 BUN 3 mg/dL (7-18) L 07/19/18 05:00 Creatinine 0.5 mg/dL (0.55-1.3) L 07/19/18 05:00 Creat Clearance w eGFR 136.65 (>60) 07/19/18 05:00 Random Glucose 92 mg/dL (74-106) 07/19/18 05:00 Calcium 8.4 mg/dL (8.5-10.1) L 07/19/18 05:00 Total Bilirubin 0.3 mg/dL (0.2-1) 07/19/18 05:00 AST 9 U/L (15-37) L 07/19/18 05:00 ALT 18 U/L (13-61) 07/19/18 05:00 Alkaline Phosphatase 65 U/L (45-117) 07/19/18 05:00 Total Protein 6.0 g/dl (6.4-8.2) L 07/19/18 05:00 Albumin 3.0 g/dl (3.4-5.0) L 07/19/18 05:00 CARDIAC ENZYMES Troponin I < 0.02 ng/ml (0.00-0.05) 07/18/18 18:05 A/P 38yo F with PMH anemia and fibroids s/p hysterectomy presenting with RUQ abdominal pain with nausea and vomiting and found to have acute cholecystitis 1. Acute Cholecystitis- will need cholecystectomy. NPO, IVF, cefazolin and flagyl, pain and nausea control. Surgery consulted 2. Anemia- Hgb stable per baseline. had blood transfusion recently. no indication for transfusion at this time. will check iron studies. normal transfusion thresholds 3. DVT ppx- will start hep after surgery Visit type - Emergency Visit Emergency Visit: Yes ED Registration Date: 07/18/18 Care time: The patient presented to the Emergency Department on the above date and was hospitalized for further evaluation of their emergent condition. - New Patient This patient is new to me today: Yes Date on this admission: 07/19/18 - Critical Care Critical Care patient: No - Discharge Referral Referred to [facility] Med P.C.: No
--- NOTE | 2018-07-19 10:36 | CONSULT ---
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 PMHx: none PSHx: ANGELLA 04/2017 Home Medications Medication Instructions Recorded NK [No Known Home Medication] 07/18/18 Allergies Allergy/AdvReac Type Severity Reaction Status Date / Time No Known Allergies Allergy Verified 07/18/18 17:22 REVIEW OF SYSTEMS: CONSTITUTIONAL: Absent: fever, chills, diaphoresis, generalized weakness, malaise, loss of appetite, weight change CARDIOVASCULAR: Absent: chest pain, syncope, palpitations, irregular heart rate, lightheadedness , peripheral edema RESPIRATORY: Absent: cough, shortness of breath, dyspnea with exertion, wheezing, stridor, hemoptysis GASTROINTESTINAL: Present: abdominal pain, abdominal distension, nausea, vomiting, diarrhea, constipation GENITOURINARY: Absent: dysuria, frequency, urgency, hesitancy, hematuria, flank pain, genital pain MUSCULOSKELETAL: Absent: myalgia, arthralgia, joint swelling, back pain, neck pain SKIN: Absent: rash, itching, pallor HEMATOLOGIC/IMMUNOLOGIC: Absent: easy bleeding, easy bruising, lymphadenopathy Present; vaginal bleeding NEUROLOGIC: Absent: headache, focal weakness, paresthesias, dizziness, unsteady gait, seizure, mental status changes, bladder or bowel incontinence PSYCHIATRIC: Absent: anxiety, depression, suicidal or homicidal ideation, hallucinations. PHYSICAL EXAM: GENERAL: Awake, alert, and fully oriented, in no acute distress. HEAD: Normal with no signs of trauma. EYES: sclera anicteric, conjunctiva clear. NECK: Normal ROM, supple without lymphadenopathy, JVD, or masses. ABDOMEN: Soft, tender RUQ w/Saxis sign, not distended, normoactive bowel sounds, no guarding, no rebound, no masses. No organomegaly. No hernias; healed Pfanensteil scar. MUSCULOSKELETAL: Normal ROM at all joints. No bony deformities or tenderness. No CVA tenderness. UPPER EXTREMITIES: 2+ pulses, warm, well-perfused. No cyanosis. Cap refill <2 seconds. No peripheral edema. LOWER EXTREMITIES: 2+ pulses, warm, well-perfused. No calf tenderness. No peripheral edema. NEUROLOGICAL: Normal speech, gait not observed. PSYCH: Cooperative. Good eye contact. Appropriate mood and affect. SKIN: Warm, dry, normal turgor, no rashes or lesions noted. Vital Signs Temperature 98.3 F 07/19/18 09:15 Pulse Rate 77 07/19/18 09:15 Respiratory Rate 20 07/19/18 09:15 Blood Pressure 106/70 07/19/18 09:15 O2 Sat by Pulse Oximetry (%) 97 07/18/18 21:23 Lab Results WBC 9.4 K/mm3 (4.0-10.0) 07/19/18 05:00 RBC 4.48 M/mm3 (3.60-5.2) 07/19/18 05:00 Hgb 9.2 GM/dL (10.7-15.3) L 07/19/18 05:00 Hct 29.8 % (32.4-45.2) L 07/19/18 05:00 MCV 66.6 fl (80-96) L 07/19/18 05:00 MCHC 30.9 g/dl (32.0-36.0) L 07/19/18 05:00 RDW 21.3 % (11.6-15.6) H 07/19/18 05:00 Plt Count 185 K/MM3 (134-434) 07/19/18 05:00 Sodium 139 mmol/L (136-145) 07/19/18 05:00 Potassium 3.6 mmol/L (3.5-5.1) 07/19/18 05:00 Chloride 105 mmol/L (98-107) 07/19/18 05:00 Carbon Dioxide 28 mmol/L (21-32) 07/19/18 05:00 Anion Gap 6 MMOL/L (8-16) L 07/19/18 05:00 BUN 3 mg/dL (7-18) L 07/19/18 05:00 Creatinine 0.5 mg/dL (0.55-1.3) L 07/19/18 05:00 Random Glucose 92 mg/dL (74-106) 07/19/18 05:00 Calcium 8.4 mg/dL (8.5-10.1) L 07/19/18 05:00 Blood Type O POSITIVE 07/18/18 21:06 Antibody Screen Negative 07/18/18 21:06 INR 1.05 (0.83-1.09) 07/18/18 21:06 US/CT reviewed IMP: acute cholecystitis; cholelithiasis PLAN:Trial of clear liquids/IVAB's; for lap norm possible open 07/21/18; r/b/t/ a's d/w the patient and her . Adelfo Madrid MD FACS
--- NOTE | 2018-07-19 11:39 | EKG ---
Test Reason : Blood Pressure : / mmHG Vent. Rate : 066 BPM Atrial Rate : 066 BPM P-R Int : 170 ms QRS Dur : 084 ms QT Int : 420 ms P-R-T Axes : 018 -16 008 degrees QTc Int : 440 ms NORMAL SINUS RHYTHM NORMAL ECG WHEN COMPARED WITH ECG OF 08-MAY-2018 01:51, NO SIGNIFICANT CHANGE WAS FOUND Confirmed by TOBIAS ANGUIANO MD ([id number]) on 07/19/2018 11:38:50 AM Referred By: Confirmed By:TOBIAS ANGUIANO MD
[2018-07-20] MEDS: LACTATED RINGERS SOLUTION 1,000 ML IV SCH ×2 (02:07→14:50)
[2018-07-20] MEDS: MORPHINE SULFATE 2 MG/ML VIAL IVPUSH PRN (02:12)
[2018-07-20] MEDS: CEFAZOLIN 1 GM/D5W 1 GM/50 ML BAG IVPB SCH ×3 (02:20→17:47)
[2018-07-20] MEDS: ONDANSETRON 4 MG/2 ML VIAL IVPUSH PRN ×2 (07:41→14:50)
--- NOTE | 2018-07-20 07:41 | PN ---
Physical Exam: SUBJECTIVE: Patient seen and examined at bedside. no acute events overnight. c/ o pain and nausea but improved with medication. denies CP, SOB, fever, chills, V /C/D OBJECTIVE: Vital Signs Period Temp Pulse Resp BP Sys/Chavez Pulse Ox Last 24 Hr 98.3 F-99.4 F 77-80 20-20 106-115/65-70 97-97 GENERAL: A&Ox3, NAD HEENT: NC/AT, PERRLA, EOMI, MMM NECK: Trachea midline, full range of motion, supple. LUNGS: CTA b/l HEART: RRR no m/r/g ABDOMEN: +bs, soft, severe diffuse tenderness most prominently RUQ and epigastrum EXTREMITIES: 2+ pulses, warm, well-perfused, no edema. 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 SKIN: Warm, dry, normal turgor, no rashes or lesions noted Laboratory Results - last 24 hr 07/19/18 07/19/18 05:00 05:00 WBC 9.4 RBC 4.48 Hgb 9.2 L Hct 29.8 L MCV 66.6 L MCH 20.6 L MCHC 30.9 L RDW 21.3 H Plt Count 185 MPV 9.6 Absolute Neuts (auto) 7.0 Neutrophils % 74.3 Lymphocytes % 15.2 Monocytes % 6.9 Eosinophils % 3.1 Basophils % 0.5 Nucleated RBC % 0 Sodium 139 Potassium 3.6 Chloride 105 Carbon Dioxide 28 Anion Gap 6 L BUN 3 L Creatinine 0.5 L Creat Clearance w eGFR 136.65 Random Glucose 92 Calcium 8.4 L Phosphorus 3.8 Magnesium 2.0 Total Bilirubin 0.3 AST 9 L ALT 18 Alkaline Phosphatase 65 Total Protein 6.0 L Albumin 3.0 L Active Medications Generic Name Dose Route Start Last Admin Trade Name Freq PRN Reason Stop Dose Admin Acetaminophen 1,000 mg 07/18/18 21:39 07/19/18 09:03 Ofirmev Injection - IVPB 1,000 mg Q6H PRN Administration PAIN LEVEL 1-5 Lactated Ringer's 1,000 mls @ 125 mls/hr 07/18/18 21:45 07/20/18 02:07 Lactated Ringers Solution IV 125 mls/hr ASDIR MARYLIN Administration Cefazolin Sodium 1 gm in 50 mls @ 100 mls/hr 07/18/18 22:30 07/20/18 02:20 Ancef 1 Gm Premixed Ivpb - IVPB 100 mls/hr Q8H-IV MARYLIN Administration Metronidazole 500 mg in 100 mls @ 100 mls/hr 07/18/18 22:30 07/20/18 02:07 Flagyl 500mg Premixed Ivpb - IVPB 100 mls/hr Q8H-IV MARYLIN Administration Morphine Sulfate 2 mg 07/18/18 21:33 07/20/18 02:12 Morphine Sulfate IVPUSH 2 mg Q4H PRN Administration PAIN LEVEL 6-10 Ondansetron HCl 4 mg 07/18/18 21:36 07/19/18 08:50 Zofran Injection IVPUSH 4 mg Q6H PRN Administration NAUSEA AND/OR VOMITING ASSESSMENT/PLAN: 38 y/o F w/ PMHx anemia and fibroid uterus s/p ANGELLA p/w RUQ abdominal pain with nausea and vomiting and found to have acute cholecystitis #acute cholecystitis -Sx consulted, Dr. Madrid -peter-op Cefazolin/Flagyl -LR @ 125 -morphine/acetaminophen PRN per pain scale -Zofran PRN Microcytic Anemia- Hgb stable per baseline. had blood transfusion recently. no indication for transfusion at this time. f/u iron studies. Ferritin 18.6 will give IV iron x1 maintain Hgb >7 FEN LR @ 125 replete prn clear liquid, NPO midnight DVT ppx- will start hep after surgery, SCDs Dispo med/surg lap norm tomorrow Visit type - Emergency Visit Emergency Visit: Yes ED Registration Date: 07/18/18 Care time: The patient presented to the Emergency Department on the above date and was hospitalized for further evaluation of their emergent condition. - New Patient This patient is new to me today: Yes Date on this admission: 07/20/18 - Critical Care Critical Care patient: No
[2018-07-20 07:56] LABS: HEMATOCRIT 29.8 % (32.4-45.2); HEMOGLOBIN 9.3 GM/dL (10.7-15.3); MCH 20.9 pg (25.7-33.7); MCHC 31.3 g/dl (32.0-36.0); MEAN CELL VOLUME 66.8 fl (80-96); MEAN PLT VOLUME 9.1 fl (7.5-11.1); PLATELET COUNT 212 K/MM3 (134-434); RBC 4.46 M/mm3 (3.60-5.2); RDW 21.5 % (11.6-15.6); WHITE BLOOD COUNT 5.9 K/mm3 (4.0-10.0)
[2018-07-20] MEDS: ACETAMINOPHEN 1000 MG/100 ML VIAL (NON FORMULARY) IVPB PRN ×2 (08:30→14:50)
[2018-07-20 08:34] LABS: ALK PHOS 64 U/L (45-117); ANION GAP 4 MMOL/L (8-16); BILIRUBIN,TOTAL 0.2 mg/dL (0.2-1); BLOOD UREA NITROGEN 3 mg/dL (7-18); CALCIUM 8.2 mg/dL (8.5-10.1); CHLORIDE 105 mmol/L (98-107); CO2 30 mmol/L (21-32); CREATININE 0.4 mg/dL (0.55-1.3); GLUCOSE,RANDOM 88 mg/dL (74-106); POTASSIUM 3.5 mmol/L (3.5-5.1); SGOT/AST 10 U/L (15-37); SGPT/ALT 13 U/L (13-61); SODIUM 139 mmol/L (136-145); TOT PROT 6.1 g/dl (6.4-8.2)
[2018-07-20] MEDS ORDERED: IRON SUCROSE INJECTION 200 MG in SODIUM CHLORIDE 90 ML IVPB ONE (10:00)
[2018-07-20] MEDS ORDERED: ENOXAPARIN NA (PORCINE) 40 MG/0.4 ML DISP.SYRIN SQ ONE (10:15)
--- NOTE | 2018-07-20 10:16 | PN ---
Teaching Attending Note Name of Resident: Matti Weller ATTENDING PHYSICIAN STATEMENT I saw and evaluated the patient. I reviewed the resident's note and discussed the case with the resident. I agree with the resident's findings and plan as documented. SUBJECTIVE:states she has RUQ pain with eating but wants to continue with food. also reports JADE. denies Cp, SOB, fever, chills, N/V/C. no BM since arrival OBJECTIVE: Last Vital Signs Temp Pulse Resp BP Pulse Ox 98.4 F 73 18 104/63 97 07/20/18 08:58 07/20/18 08:58 07/20/18 08:58 07/20/18 08:58 07/19/18 21:00 General NAD Lungs CTA B/L no wheezing/rales/rhonchi Abdomen +RUQ and epigastric tenderness no rebound ASSESSMENT AND PLAN: 38yo F with PMH anemia and fibroids s/p hysterectomy presenting with RUQ abdominal pain with nausea and vomiting and found to have acute cholecystitis 1. Acute Cholecystitis- plan for OR tomorrow for cholecystectomy. recommended NPO but pt wants to continue liquid diet. informed her she should stop eating if pain worsens. cont IVF, cefazolin and flagyl, pain and nausea control. Surgery consulted 2. constipation- liekly due to reduced po intake worsened with opiate use. will start mirlax and stool softeners. 3. Anemia- Hgb stable per baseline. had blood transfusion recently. no indication for transfusion at this time. iron studies pending. normal transfusion thresholds 4. DVT ppx- lovenox, hold tomorrow dose
--- NOTE | 2018-07-20 10:19 | PN ---
Progress Note (short form) - Note Progress Note: Attending Surgeon For lap norm 07/21/18; see my original consult for details. Adelfo Madrid MD FACS
[2018-07-20] MEDS: POLYETHYLENE GLYCOL 3350 119 GM BTL PO SCH (11:25)
[2018-07-20] MEDS: PROCHLORPERAZINE INJECTION 10 MG/2 ML VIAL IVPB ONE ×2 (16:24→16:35)
[2018-07-20] MEDS ORDERED: DOCUSATE SODIUM 100 MG CAPSULE (FP) PO SCH (22:00)
[2018-07-21] MEDS: CEFAZOLIN 1 GM/D5W 1 GM/50 ML BAG IVPB SCH ×3 (01:42→18:34)
[2018-07-21] MEDS: LACTATED RINGERS SOLUTION 1,000 ML IV SCH ×2 (02:07→13:26)
[2018-07-21] MEDS ORDERED: ROCURONIUM BROMIDE 50 MG/5 ML VIAL ONE (07:53)
[2018-07-21] MEDS ORDERED: MIDAZOLAM HCL 2 MG/2 ML SINGLE DOSE VIAL ONE (07:53)
[2018-07-21] MEDS ORDERED: PROPOFOL 20 ML ONE (07:53)
[2018-07-21] MEDS ORDERED: SUCCINYLCHOLINE CHLORIDE 200 MG/10 ML VIAL ONE (07:53)
[2018-07-21] MEDS ORDERED: SCOPOLAMINE HYDROBROMIDE 1 PATCH PATCH.TD72 ONE (08:13)
[2018-07-21 08:39] LABS: BASO % 0.9 % (0-2.0); EOS % 5.2 % (0-4.5); HEMATOCRIT 32.9 % (32.4-45.2); HEMOGLOBIN 10.1 GM/dL (10.7-15.3); LYMPH % 22.8 % (8-40); MCH 20.9 pg (25.7-33.7); MCHC 30.7 g/dl (32.0-36.0); MEAN CELL VOLUME 68.1 fl (80-96); MEAN PLT VOLUME 9.2 fl (7.5-11.1); MONO % 6.4 % (3.8-10.2); NEUT % 64.7 % (42.8-82.8); PLATELET COUNT 244 K/MM3 (134-434); RBC 4.83 M/mm3 (3.60-5.2); RDW 20.9 % (11.6-15.6)
[2018-07-21 08:52] LABS: ALBUMIN 3.5 g/dl (3.4-5.0); ALK PHOS 71 U/L (45-117); ANION GAP 6 MMOL/L (8-16); BILIRUBIN,TOTAL 0.2 mg/dL (0.2-1); BLOOD UREA NITROGEN 3 mg/dL (7-18); CALCIUM 8.8 mg/dL (8.5-10.1); CHLORIDE 104 mmol/L (98-107); CO2 28 mmol/L (21-32); CREATININE 0.5 mg/dL (0.55-1.3); GLUCOSE,RANDOM 92 mg/dL (74-106); MAGNESIUM 2.2 mg/dL (1.8-2.4); PHOSPHOROUS 3.2 mg/dL (2.5-4.9); POTASSIUM 3.7 mmol/L (3.5-5.1); SGOT/AST 12 U/L (15-37); SGPT/ALT 15 U/L (13-61); SODIUM 138 mmol/L (136-145)
[2018-07-21 08:57] LABS: INR 1.25 (0.83-1.09); PROTHROMBIN TIME (PATIENT) 14.8 SEC (9.7-13.0)
[2018-07-21] MEDS ORDERED: DEXAMETHASONE SOD PHOSPHATE 4 MG/1 ML VIAL ONE (08:57)
[2018-07-21 09:00] LABS: ACTIVATED PTT 34.9 SECONDS (25.2-36.5)
[2018-07-21] MEDS ORDERED: ePHEDrine SULFATE 50 MG/1 ML AMPULE ONE (09:11)
[2018-07-21] MEDS ORDERED: BUPIVACAINE HCL/PF (5 MG/ML) 30 ML VIAL IJ ONE ×2 (10:00)
[2018-07-21] MEDS ORDERED: oxyCODONE HCL 5 MG TABLET PO PRN (10:45)
--- NOTE | 2018-07-21 10:49 | OP ---
Operative Note - Note: Operative Date: 07/21/18 Pre-Operative Diagnosis: acute cholecystitis; cholelithiasis Operation: laparoscopic cholecystectomy Post-Operative Diagnosis: Same as Pre-op Surgeon: Adelfo Madrid Vice President Payer: Latasha Chaudhry Anesthesiologist/RETAIL ANALYST: Alverto Murrieta Anesthesia: General Specimens Removed: gallbladder Estimated Blood Loss (mls): 25 Fluid Volume Replaced (mls): 900 Operative Report Dictated: Yes
--- NOTE | 2018-07-21 10:52 | SURG ---
Surgery Dot Net Developer Note Dot Net Developer: Latasha Chaudhry PA-C Date of Service: 07/21/18 Diagnosis: acute cholecystitis; cholelithiasis Procedure: laparoscopic cholecystectomy I was present for the entirety of the operative procedure. For further detail, please refer to operative report. Visit type - Case Type Case Type: Scheduled - Emergency Emergency Visit: Yes ED Registration Date: 07/18/18 Care time: The patient presented to the Emergency Department on the above date and was hospitalized for further evaluation of their emergent condition. - New patient This patient is new to me today: Yes Date on this admission: 07/21/18
[2018-07-21] MEDS ORDERED: ACETAMINOPHEN INJECTION 100 ML IVPB ONE (10:56)
[2018-07-21] MEDS ORDERED: ACETAMINOPHEN 1000 MG/100 ML VIAL (NON FORMULARY) IVPB ONE (11:00)
[2018-07-21] MEDS ORDERED: ONDANSETRON 4 MG/2 ML VIAL ONE (11:10)
[2018-07-21] MEDS ORDERED: ONDANSETRON 4 MG/2 ML VIAL IVPUSH ONE (11:13)
--- NOTE | 2018-07-21 12:15 | PN ---
Teaching Attending Note Name of Resident: Denise Angelo ATTENDING PHYSICIAN STATEMENT I reviewed the resident's note and discussed the case with the resident. I agree with the resident's findings and plan as documented. pt was in the OR and did not assess ASSESSMENT AND PLAN: 38yo F with PMH anemia and fibroids s/p hysterectomy presenting with RUQ abdominal pain with nausea and vomiting and found to have acute cholecystitis 1. Acute Cholecystitis-currently in the OR for lap. cholecystectomy. can likely d/c abx after surgery. follow up recommendations. advance diet as tolerated. montor LFT post surgery. pain and nausea control. Surgery consulted 2. constipation- liekly due to reduced po intake worsened with opiate use. on mirlax and stool softeners. 3. Anemia- Hgb stable per baseline. had blood transfusion recently. no indication for transfusion at this time. iron studies pending. normal transfusion thresholds 4. DVT [id number] lovenox at surgeon discretion 5. anticipate discharge in next 24H
[2018-07-21] MEDS: MORPHINE SULFATE 2 MG/ML VIAL IVPUSH PRN (12:40)
[2018-07-21] MEDS: POLYETHYLENE GLYCOL 3350 119 GM BTL PO SCH (13:26)
--- NOTE | 2018-07-21 13:44 | PN ---
Physical Exam: SUBJECTIVE: Patient seen and examined after lapchole. C/o of gas after receiving morphine. Was given famotidine. Dietary order in per surgery, pt wants to wait before eating OBJECTIVE: Vital Signs Period Temp Pulse Resp BP Sys/Chavez Pulse Ox Last 24 Hr 97.8 F-98.4 F 67-112 18-29 113-134/62-87 97-100 Vital Signs Temp 98.6 F 07/21/18 15:12 Pulse 74 07/21/18 15:12 Resp 26 H 07/21/18 12:00 BP 126/72 07/21/18 15:12 Pulse Ox 100 07/21/18 11:45 Intake & Output 07/20/18 07/21/18 07/21/18 23:59 11:59 23:59 Intake Total 150 2850 0 Output Total 1025 1150 Balance 150 1825 -1150 Intake: IV 0 2850 Lactated Ringers Solution 0 1350 1,000 ml @ 125 mls/hr IV ASDIR [facility] Rx#: [id number] IVPB 150 Oral 0 0 Output: Drainage 150 Urine 1000 1000 Estimated Blood Loss 25 Other: Voiding Method Toilet # Unmeasured Voids Void 2 2 Bowel Movement No No GENERAL: The patient is awake, alert, and fully oriented, in no acute distress. HEAD: Normal with no signs of trauma. EYES: PERRL, extraocular movements intact, sclera anicteric, conjunctiva clear. ENT:moist mucous membranes. NECK: supple. LUNGS: Breath sounds equal, clear to auscultation bilaterally, no wheezes, no crackles HEART: Regular rate and rhythm, S1, S2 ABDOMEN: Multiple small 1cm x.5 dressings over surgical wounds. Soft, mild post- op tenderness, nondistended, hypoactive bowel sounds, no guarding, no rebound, EXTREMITIES: 2+ pulses, warm, well-perfused, no edema. NEUROLOGICAL: Cranial nerves II through XII grossly intact. Normal speech, gait not observed. no rashes or lesions noted CBC, BMP 07/21/18 07:50 07/21/18 07:50 Laboratory Results - last 24 hr 07/21/18 07/21/18 07/21/18 07:50 07:50 07:50 WBC 6.0 RBC 4.83 Hgb 10.1 L Hct 32.9 MCV 68.1 L MCH 20.9 L MCHC 30.7 L RDW 20.9 H Plt Count 244 MPV 9.2 Absolute Neuts (auto) 3.9 Neutrophils % 64.7 Lymphocytes % 22.8 D Monocytes % 6.4 Eosinophils % 5.2 H Basophils % 0.9 Nucleated RBC % 0 PT with INR 14.80 H INR 1.25 H PTT (Actin FS) 34.9 Sodium 138 Potassium 3.7 Chloride 104 Carbon Dioxide 28 Anion Gap 6 L BUN 3 L Creatinine 0.5 L Creat Clearance w eGFR 136.65 Random Glucose 92 Calcium 8.8 Phosphorus 3.2 Magnesium 2.2 Total Bilirubin 0.2 AST 12 L ALT 15 Alkaline Phosphatase 71 Total Protein 7.0 Albumin 3.5 Blood Type Antibody Screen 07/21/18 07:50 WBC RBC Hgb Hct MCV MCH MCHC RDW Plt Count MPV Absolute Neuts (auto) Neutrophils % Lymphocytes % Monocytes % Eosinophils % Basophils % Nucleated RBC % PT with INR INR PTT (Actin FS) Sodium Potassium Chloride Carbon Dioxide Anion Gap BUN Creatinine Creat Clearance w eGFR Random Glucose Calcium Phosphorus Magnesium Total Bilirubin AST ALT Alkaline Phosphatase Total Protein Albumin Blood Type O POSITIVE Antibody Screen Negative Ambulatory Orders NK [No Known Home Medication] 07/18/18 Current Medications Acetaminophen (Ofirmev Injection -) 1,000 mg IVPB Q6H PRN PRN Reason: PAIN LEVEL 1-5 Docusate Sodium (Colace -) 300 mg PO HS [facility] Fentanyl (Sublimaze Injection -) 50 mcg IVPUSH [id number] PRN PRN Reason: PAIN-PACU ORDER X 4 DOSES ONLY Stop: 07/21/18 23:59 Lactated Ringer's (Lactated Ringers Solution) 1,000 mls @ 125 mls/hr IV ASDIR [facility] Last Admin: 07/21/18 13:26 Dose: 125 mls/hr Metronidazole (Flagyl 500mg Premixed Ivpb -) 500 mg in 100 mls @ 100 mls/hr IVPB Q8H-IV [place] Cefazolin Sodium (Ancef 1 Gm Premixed Ivpb -) 1 gm in 50 mls @ 100 mls/hr IVPB Q8H-IV [facility] Last Admin: 07/21/18 18:34 Dose: 100 mls/hr Morphine Sulfate (Morphine Sulfate) 2 mg IVPUSH Q4H PRN PRN Reason: PAIN LEVEL 6-10 Ondansetron HCl (Zofran Injection) 4 mg IVPUSH Q6H PRN PRN Reason: NAUSEA AND/OR VOMITING Oxycodone HCl (Roxicodone -) 5 mg PO Q4H PRN PRN Reason: PAIN LEVEL 1-5 Oxycodone HCl (Roxicodone -) 10 mg PO Q4H PRN PRN Reason: PAIN LEVEL 6-10 Polyethylene Glycol (Miralax (For Daily Use) -) 17 gm PO DAILY [facility] 07/18/18 20:15 Urine - Urine Clean Catch Urine Culture - Final NO GROWTH OBTAINED ASSESSMENT/PLAN: 38 y/o F w/ PMHx anemia and fibroid uterus s/p ANGELLA (Apr 2018) p/w RUQ abdominal pain with nausea and vomiting and found to have acute cholecystitis #acute cholecystitis with cholelithiasis -s/p laparoscopic cholecystectomy ( 07/21/18) -EBL-25, Fluid replacement- 900 -Sx consulted, Dr. Madrid -peter-op Cefazolin/Flagyl -LR @ 125 -morphine 2mg Q4H -iv tylenol -oxycodone PRN per pain scale -Zofran PRN #Microcytic Anemia - Hgb stable per baseline. - iron studies- pending - Ferritin 18.6 will give IV iron x1 maintain Hgb >7 #FEN LR @ 125 replete prn Regular diet #DVT ppx SCDs postop #Dispo med/surg Likely dc tomorrow Visit type - Emergency Visit Emergency Visit: Yes ED Registration Date: 07/18/18 Care time: The patient presented to the Emergency Department on the above date and was hospitalized for further evaluation of their emergent condition. - New Patient This patient is new to me today: Yes Date on this admission: 07/21/18 - Critical Care Critical Care patient: No - Discharge Referral Referred to [facility] Med P.C.: No
[2018-07-21] MEDS ORDERED: FAMOTIDINE 20 MG/50 ML IVPB 20 MG/50 ML MG IVPB ONE (14:31)
[2018-07-21] MEDS ORDERED: ONDANSETRON 4 MG/2 ML VIAL IVPUSH PRN (15:39)
[2018-07-21] MEDS ORDERED: ACETAMINOPHEN 1000 MG/100 ML VIAL (NON FORMULARY) IVPB PRN (15:39)
[2018-07-21] MEDS ORDERED: MORPHINE SULFATE 2 MG/ML VIAL IVPUSH PRN (16:16)
[2018-07-21] MEDS ORDERED: CEFAZOLIN 1 GM in DEXTROSE 5%-WATER - 50 ML IVPB SCH (18:00)
[2018-07-21] MEDS ORDERED: DOCUSATE SODIUM 100 MG CAPSULE (FP) PO SCH (22:00)
[2018-07-22] MEDS: oxyCODONE HCL 5 MG TABLET PO PRN ×2 (00:24→07:50)
[2018-07-22] MEDS: LACTATED RINGERS SOLUTION 1,000 ML IV SCH (00:26)
[2018-07-22] MEDS: CEFAZOLIN 1 GM/D5W 1 GM/50 ML BAG IVPB SCH ×2 (01:46→09:06)
[2018-07-22 04:11] LABS: SERUM IRON SATURATION 7 % (15-55); TOTAL IRON BINDING CAPACITY 326 ug/dL (250-450); UIBC 303 ug/dL (131-425)
--- NOTE | 2018-07-22 07:55 | PN ---
Progress Note (short form) - Note Progress Note: POD #1 Alert. Doing well. C/o incisional tenderness. Adequate pain control with medications ordered. States she is getting OOB and ambulating unassisted. Voiding spontaneously. Tolerating PO diet. Denies n/v/f/c, CP, palpitations, SOB or COLLIER. Last Vital Signs Temp Pulse Resp BP Pulse Ox 99.2 F 80 18 116/74 100 07/22/ 05:07/22/18 05:07/22/18 05:07/22/18 05:01 08/12/01 11:45 Gen: alert. nad ABD: all surgical ports c/d/i. ADRIENNE with minimal serous drainage LE: SCDs bilat. Soft. NT. Problem List - Problems (1) Acute cholecystitis Assessment/Plan: POD #1 s/p Lap Cholecystectomy ADRIENNE drain dc'd on rounds Cont OOB and ambulate Incentive spirometer Pain management PRN No further surgical intervention and cleared for dc home On behalf of Dr. Madrid, thank you for the opportunity to participate in your patient's care. Code(s): K81.0 - ACUTE CHOLECYSTITIS
[2018-07-22] MEDS ORDERED: POLYETHYLENE GLYCOL 3350 119 GM BTL PO SCH (10:00)
--- NOTE | 2018-07-22 12:40 | PN ---
Progress Note, Physician Chief Complaint: s/p lap cholecystectomy post op day one History of Present Illness: general anesthesia - Current Medication List Current Medications: Active Medications Acetaminophen (Ofirmev Injection -) 1,000 mg IVPB Q6H PRN PRN Reason: PAIN LEVEL 1-5 Docusate Sodium (Colace -) 300 mg PO HS [facility] Last Admin: 07/21/18 21:10 Dose: 300 mg Lactated Ringer's (Lactated Ringers Solution) 1,000 mls @ 125 mls/hr IV ASDIR [facility] Last Admin: 07/22/18 00:26 Dose: 125 mls/hr Metronidazole (Flagyl 500mg Premixed Ivpb -) 500 mg in 100 mls @ 100 mls/hr IVPB Q8H-IV [facility] Last Admin: 07/22/18 09:36 Dose: 100 mls/hr Cefazolin Sodium (Ancef 1 Gm Premixed Ivpb -) 1 gm in 50 mls @ 100 mls/hr IVPB Q8H-IV [facility] Last Admin: 07/22/18 09:06 Dose: 100 mls/hr Morphine Sulfate (Morphine Sulfate) 2 mg IVPUSH Q4H PRN PRN Reason: PAIN LEVEL 6-10 Last Admin: 07/21/18 21:08 Dose: 2 mg Ondansetron HCl (Zofran Injection) 4 mg IVPUSH Q6H PRN PRN Reason: NAUSEA AND/OR VOMITING Oxycodone HCl (Roxicodone -) 5 mg PO Q4H PRN PRN Reason: PAIN LEVEL 1-5 Oxycodone HCl (Roxicodone -) 10 mg PO Q4H PRN PRN Reason: PAIN LEVEL 6-10 Last Admin: 07/22/18 07:50 Dose: 10 mg Polyethylene Glycol (Miralax (For Daily Use) -) 17 gm PO DAILY [facility] Last Admin: 07/22/18 09:13 Dose: 17 gm - Objective Vital Signs: Vital Signs Temperature 99.2 F 07/22/18 05:19 Pulse Rate 80 07/22/18 05:19 Respiratory Rate 18 07/22/18 09:00 Blood Pressure 116/74 07/22/18 05:19 O2 Sat by Pulse Oximetry (%) 100 07/22/18 09:00 Constitutional: Yes: Well Nourished Cardiovascular: Yes: WNL Respiratory: Yes: WNL Gastrointestinal: Yes: WNL Labs: CBC, BMP 07/21/18 07:50 07/21/18 07:50 INR, PTT INR 1.25 (0.83-1.09) H 07/21/18 07:50 Assessment/Plan no acute anesthetic complications, dept of anesthesiology will sign off care at this time
--- NOTE | 2018-07-22 13:02 | OP ---
DATE OF OPERATION: 07/21/2018 PREOPERATIVE DIAGNOSIS: Acute cholecystitis and cholelithiasis. POSTOPERATIVE DIAGNOSIS: Acute cholecystitis, cholelithiasis. PROCEDURE: Laparoscopic cholecystectomy. SURGEON: Adelfo Madrid MD SUPERVISOR WEAVING: ELI Day ANESTHESIA: General. OPERATIVE FINDINGS: There was acute cholecystitis and cholelithiasis. The rest of the findings were unremarkable. DESCRIPTION OF PROCEDURE: The patient was placed on the operating table in the supine position and after the induction of general anesthesia the patient's abdomen was prepped with ChloraPrep and draped in sterile fashion. A timeout was taken and pneumoperitoneum established above the umbilicus using a Veress needle. Once 15 mmHg of pressure were obtained, a 5-mm port was placed at the umbilicus and additional lateral 5-mm ports and a subxiphoid 12-mm port. Laparoscopy was carried out and the previously noted findings were observed. Dissection was begun at the neck of the gallbladder where the peritoneum was opened medially and laterally using blunt dissection and electrocautery. The cystic duct was identified coursing from the neck of the gallbladder towards the common bile duct and it was dissected using blunt dissection proximally and distally for length. Similarly, the artery was identified and dissected proximally and distally for length. A critical view of safety was taken and then the duct and the artery were clipped twice proximally and twice distally with large hemoclips. The duct and artery were then serially divided using Endoshears. Hemostasis was checked for and noted to be good and then the gallbladder was removed from the liver bed in a retrograde fashion using electrocautery. Prior to removal from the edge of the liver, hemostasis in the liver bed was again checked for and noted to be good and then the gallbladder removed from the edge of the liver, placed in an EndoCatch , and brought out through the subxiphoid port. Pneumoperitoneum was reestablished. Copious irrigation was carried out with saline. Hemostasis was verified again. A 10-mm Jasen-Wong drain was placed in the right hepatorenal fossa and brought out through 1 of the 5-mm ports and secured to the skin with 2-0 silk suture. All port sites were removed under laparoscopic vision without evidence of bleeding from the port sites. The port sites were infiltrated with 0.5% Marcaine and the skin edges reapproximated with 4-0 Biosyn in a subcuticular continuous fashion. Steri-Strips and Band-Aid dressings were placed. The drain was connected to bulb suction and then the patient aroused from general anesthesia and transferred to the postanesthesia care unit in stable condition, awake and alert. ESTIMATED BLOOD LOSS: 25 mL. REPLACEMENT: Crystalloid. DRAINS: One 10-mm Jasen-Wong in the gallbladder fossa. SPECIMEN: Gallbladder and contents to Pathology. I, Adelfo Madrid, was physically present in the operating room from the time the patient was placed on the operating room table until she was transferred to the post anesthesia care unit in [employer]. MD ROMANA Rubalcava/[id number] MTDD
[2018-07-22 13:45] VITALS: BP 127/79; PULSE 83; TEMP 98.4
--- NOTE | 2018-07-22 14:02 | DS ---
Physical Exam: SUBJECTIVE: Patient seen and examined. Pt. voiding without difficulty, had lap norm, tolerating PO intake. Pt. still requiring pain medications but is passing gas. Has not passed stool yet. OBJECTIVE: Vital Signs Period Temp Pulse Resp BP Sys/Chavez Pulse Ox Last 24 Hr 98.4 F-99.2 F 74-83 18-20 116-130/72-79 100 PHYSICAL EXAM GENERAL: The patient is awake, alert, and in no acute distress, asking about going home. HEAD: Normal with no signs of trauma. EYES: sclera anicteric, conjunctiva clear. ENT: Ears normal, nares patent, oropharynx clear without exudates, moist mucous membranes. NECK: Trachea midline, full range of motion, supple. LUNGS: Breath sounds equal, clear to auscultation bilaterally, no wheezes, no crackles, no accessory muscle use. HEART: Regular rate and rhythm, S1, S2 without murmur ABDOMEN: Soft, mild diffuse tenderness around dressing sites, ADRIENNE drain with minimal serosanginous drainage, nondistended, bowel sounds sluggish EXTREMITIES: 2+ radial pulses, warm, well-perfused, nocalf tenderness, no edema. NEUROLOGICAL: Normal speech, gait not observed. PSYCH: Normal mood, normal affect. SKIN: Warm, dry, normal turgor, no rashes or lesions noted. LABS Laboratory Results - last 24 hr 07/20/18 06:45 Iron 23 L TIBC 326 Iron Saturation 7 L HOSPITAL COURSE: Date of Admission:07/18/18 Date of Discharge: 07/22/18 Pt. admitted for acute cholecystits. Abdominal US and Abdominal CT showed gallstones in the gall bladder and were consistent with the Pt.s symptoms despite no elevation of LFTs. Pt. was started on Cefazolin and Flagyl peter- operatively. Pt. had uncomplicated laproscopic cholecystectomy. Pt. tolerated PO intake and was able to pass gas. Pt. was found to be anemic, and was anemic on prior admission. Pt. started on Ferrous sulfate and encouraged to follow up with PCP and Gastroenterology. Referral for GI sent as detailed below. Hospital course discussed and agreed upon with Pt., Physicians and medical staff. Minutes to complete discharge: 35 Discharge Summary Reason For Visit: ACUTE CHOLECYSTITIS Current Active Problems Acute cholecystitis (Acute) Condition: Stable - Instructions Diet, Activity, Other Instructions: Please follow up with Dr. Huynh( [employer]) for follow up on your anemia. We have started you on Iron 325mg TWICE a day. Please take as prescribed. You may expereience dark stool and increased difficulty passing stool, you can take over the counter medications to help with your bowel movements in addition to increasing your fiber intake. Please do not drive or operate heavy machinery while taking Narcotics. Dr. Madrid Discharge Instructions Dear MADI PUTNAM, Post Operative Instructions Physical activity Resume your normal everyday activity as tolerated no heavy lifting or exercise until seen by your surgeon. You may walk unlimited amounts of and climb stairs. You may resume driving the car when you feel safe and comfortable behind the wheel and are no longer taking narcotics. Wound care If you have a bandage, leave it on, and keep dry for 48 - 72 hours. After that time discard the outer bandage. If there are tapes on the skin under the outer bandage, leave them in place. They will peel off in the next 7 to 10 days. Do Not peel them off. You may shower 2 days after surgery but do not submerge the incisions. Do not apply lotions or ointments to incisions If there are tapes present on the skin, they can get wet. Diet There are no dietary restrictions. Eat healthy, high-fiber foods. Drink 6 to 8 glasses of liquid each day. This will assist in keeping your bowels are regular. Pain management You may take Tylenol or acetaminophen or Ibuprofen (for example, Motrin, Advil etc.) Any pain prescription medication ordered should be taken as prescribed for moderate to severe pain. Call Dr. Madrid for any of the following: Severe pain not relieved by medication Fever of 101 or higher Excessive bleeding or drainage on dressing Inability to urinate If you experience any chest pain or shortness of breath please seek emergency treatment immediately. Call the office at [phone] for a post operative appointment in 7 - 10 days. Referrals: Quiana Huynh DO [Staff Physician] - Disposition: HOME - Home Medications Comprehensive Discharge Medication List: Ambulatory Orders Acetaminophen W/ Codeine #3 [Tylenol # 3 -] 1 tab PO Q4H PRN #30 tablet MDD 6 Ferrous Sulfate [Feosol] 325 mg PO BID #30 ud 07/22/18 - Discharge Referral Referred to [facility] Med P.C.: No
--- NOTE | 2018-07-22 16:37 | PATH ---
Surgical Pathology Report Patient Name: MADI PUTNAM Med. Rec. #: [id number] /Age/Gender: 1980 (Age: 38) / F Account: [id number] Location: [address] [place] [address] Taken: 07/21/2018 Received: 07/21/2018 Reported: 07/22/2018 Physicians: MD Jade Reese M.D. Specimen(s) Received GALLBLADDER Clinical History Acute cholecystitis Final Diagnosis GALLBLADDER, CHOLECYSTECTOMY: ACUTE SUPERIMPOSED ON CHRONIC CHOLECYSTITIS. CHOLELITHIASIS Electronically Signed Abran Villatoro M.D. Gross Description Received in formalin, labeled "gallbladder," is a 7.7 x 2.2 x 2.0 cm. gallbladder with a 0.2 cm. in length portion of cystic duct attached. The outer surface is villareal-pink with multifocal defects and varies from smooth to shaggy. The lumen contains a 1.3 cm in greatest dimension yellow, ovoid cholelith. There is no bile present within the lumen. The mucosa is hyperemic. The wall of the gallbladder averages 0.3 cm. in thickness. Catalyst Recovery Operator sections are submitted in one cassette. /07/21/[address] [facility]07/21/2018
--- NOTE | 2018-07-22 18:03 | PN ---
Teaching Attending Note Name of Resident: Salty Hurtado ATTENDING PHYSICIAN STATEMENT I saw and evaluated the patient. I reviewed the resident's note and discussed the case with the resident. I agree with the resident's findings and plan as documented. SUBJECTIVE: Mild residual abdominal tenderness. No fever/chills. Tolerating oral intake. No nausea/vomiting. Passing flatus. OBJECTIVE: Afebrile, Hemodynamically Stable. Last Vital Signs Temp Pulse Resp BP Pulse Ox 98.4 F 83 20 127/79 100 07/22/18 13:44 07/22/18 13:44 07/22/18 13:44 07/22/18 13:44 07/22/18 09:00 HEENT - Atrauamatic, Normocephalic. Heart - S1, S2, RRR Lungs - clear to auscultation Abdomen -Soft, mild tenderness RUQ. Trochar sites clean and dressed. Bowel Sounds normal. Extremities - no edema, no calf tenderness. Laboratory Results - last 24 hr 07/20/18 06:45 Iron 23 L TIBC 326 Iron Saturation 7 L Discharge Medications Medication Instructions Recorded Acetaminophen W/ Codeine #3 1 tab PO Q4H PRN #30 tablet MDD 6 07/22/18 [Tylenol # 3 -] Ferrous Sulfate [Feosol] 325 mg PO BID #30 ud 07/22/18 ASSESSMENT AND PLAN: 38 year old female with history of Anemia and Fibroid Uterus s/p Hysterectomy now presents with RUQ abdominal pain with nausea and vomiting, found to have acute cholecystitis. 1. Acute Cholecystitis POD 1 s/p lap norm Tolerating oral intake, passing flatus, pain controlled. Surgically cleared for discharge. 2. Iron Deficiency (Microcytic) Anemia Ferritin 18, Iron Sat 7 ? related to history of Gynecological blood loss history, currently s/p Hysterectomy for Fibroid Uterus 05/03. Will start FeSO4 supplementation and recommended for PCP referral for out-patient GI eval for further work-up. No evidence of acute blood loss. 3. Nayely-aortic Retroperitoneal Lymph Nodes on CT A/P - likely reactive - recommended for 3 month follow up. Medically and Surgically stable for discharge.
[2018-07-22] MEDS ORDERED: FERROUS SO4 325 MG TABLET (FP) PO SCH (22:00)
== END 2018-07-22 14:33 | disposition home or self-care (01) | DRG 419 ==
LOC: JER 17:05 → JERBED 21:23 → J6S 07-19 02:45
PROVIDERS: ADMIT Internal Medicine
PROC: 0FT44ZZ Resection of Gallbladder, Percutaneous Endoscopic Approach (ICD-10-PCS; principal; 2018-07-21 11:00)
DX: K80.12 Calculus of gallbladder with acute and chronic cholecystitis without obstruction (principal); D50.9 Iron deficiency anemia, unspecified; K59.00 Constipation, unspecified
CPT/HCPCS: 36415; 71046-TC-FY; 74177-TC; 76705-TC; 80053; 81003; 82728; 83540; 83550; 83605; 83690; 83735; 84100; 84484; 84703; 85025; 85027; 85610; 85730; 86850; 86900; 86901; 87086; 88304-TC; 93005; 93010; 94760; 99285-25; J0131; J1756; J7030

== ENCOUNTER 2018-09-03 11:14 | Day surgery (SDC) | payer OTHER | END 2018-09-03 14:02 | disposition home or self-care (01) | LOC: FASU 11:14 ==

== ENCOUNTER 2018-10-15 11:39 | Day surgery (SDC) | payer BC ==
[2018-10-14 15:14] VITALS: BMI 25.2
[2018-10-15] MEDS ORDERED: PROPOFOL 20 ML ONE ×2 (14:43)
[2018-10-15 15:52] VITALS: TEMP 97.3
[2018-10-15 15:56] VITALS: BP 104/62
[2018-10-15 15:57] VITALS: PULSE 64
== END 2018-10-15 15:45 | disposition home or self-care (01) ==
LOC: FASU 11:39
PROVIDERS: ATTEND Internal Medicine Gastroenterology
PROC: 0DJD8ZZ Inspection of Lower Intestinal Tract, Via Natural or Artificial Opening Endoscopic (ICD-10-PCS; principal; 2018-10-15 14:47)
DX: D64.9 Anemia, unspecified (principal); K57.30 Diverticulosis of large intestine without perforation or abscess without bleeding; K64.8 Other hemorrhoids; K64.1 Second degree hemorrhoids
CPT/HCPCS: 84703